=== PATIENT | male | born 1945 | race Caucasian/White ===

== ENCOUNTER 2019-08-04 14:31 | Outpatient (CLI) | payer MEDICARE, BC ==
--- NOTE | 2019-08-04 14:45 | RAD ---
XR Chest Pa Lat STANDARD HISTORY: Hyperlipidemia, dyspnea COMPARISON: None FINDINGS: The heart size is normal. The lungs are well expanded without focal areas of consolidation, pneumothorax or pleural effusions. There are degenerative changes in the spine. IMPRESSION: No radiographic evidence of acute cardiopulmonary process.
== END 2019-08-04 14:32 | disposition home or self-care (01) ==
LOC: BICRAD 14:31
PROVIDERS: ATTEND Family Medicine
DX: E78.5 Hyperlipidemia, unspecified (principal)
CPT/HCPCS: 71046

== ENCOUNTER 2019-09-20 14:46 | Inpatient (IN) | payer MEDICARE, BC ==
[~2019-09-20 14:46] MED LIST: ISOVUE-370 76%-LOCM 1 ML ONE; Iopamidol 370 76% 50 ML VIAL FS ONE
[2019-09-20 15:36] LABS: Hemoglobin 8.5 g/dL (14.0-18.0); Mean Corpuscular HGB CONC 32.6 g/dL (32.0-36.0); Mean Corpuscular Hemoglobin 29.1 pg (27.0-31.0); Mean Corpuscular Volume 89.2 fL (78.0-98.0); Mean Platelet Volume 7.1 fL (7.4-10.4); Platelet Count 509 thou/uL (130-400); RBC Distribution Width 15.9 % (11.5-14.5); Red Blood Cell (RBC) Count 2.93 mill/uL (4.70-6.10); White Blood Cell (WBC) Count 42.2 thou/uL (4.8-10.8)
[2019-09-20 15:39] LABS: INR-International Normal Ratio 1.6; PTT 33.5 SEC (22.9-36.1)
[2019-09-20] MEDS ORDERED: Ketorolac Tromethamine 30 MG/ML VIAL ONE (15:52)
[2019-09-20] MEDS ORDERED: Morphine 4 MG/ML VIAL ONE (15:52)
--- NOTE | 2019-09-20 15:53 | RAD ---
EXAM: CHEST ONE VIEW HISTORY: Dyspnea. 15 pound weight loss. COMPARISON: 08/04/2019 FINDINGS: The cardiac silhouette and pulmonary vasculature is within normal limits. The lungs are clear. The os seous structures are intact. Vascular calcifications are seen in the aortic arch. Chest is overall similar to prior exam. IMPRESSION: No acute cardiopulmonary process.
[2019-09-20 16:01] LABS: Band 8 % (5-11); Eosinophils 1 % (0-10); Hypochromia SLIGHT = 6-15 cells (100X) (0-5/hpf); Lymphocytes 3 % (21-51); MDiff Complete? YES; Monocytes 7 % (0-10); Neutrophil 80 % (42-75); Ovalocytes SLIGHT = 2-5 cells (100X) (0-1/hpf); Platelet Morphology Comment Appears Increased; Polychromasia SLIGHT = 2-3 cells (100X) (0-2/hpf); Reactive Lymphocytes 1 % (0-10); Reflex for Review?? YES; Target Cells SLIGHT = 2-5 cells (100X) (0-1/hpf); Tear Drops SLIGHT = 2-5 cells (100X) (0-1/hpf); Toxic Granulation SLIGHT
[2019-09-20 16:05] LABS: ALT (SGPT) 43 U/L (8-55); AST (SGOT) 58 U/L (5-34); Albumin 2.8 g/dL (3.4-4.8); Alkaline Phosphatase 526 U/L (40-110); Anion Gap 14 mmol/L (10-20); BUN (Urea Nitrogen) 14 mg/dL (8.4-25.7); Calc. Creatinine Clearance 0 mL/min (70-130); Calcium 8.9 mg/dL (7.8-10.44); Carbon Dioxide 29 mmol/L (23-31); Chloride 94 mmol/L (98-107); Estimated GFR-MDRD Greater than 90; Globulin 2.7 g/dL (2.4-3.5); Glucose 150 mg/dL (83-110); Lipase 20 U/L (8-78); Potassium 4.3 mmol/L (3.5-5.1); Protein, Total 5.5 g/dL (5.8-8.1); Sodium 133 mmol/L (136-145)
--- NOTE | 2019-09-20 17:09 | ULT ---
RIGHT UPPER QUADRANT ULTRASOUND CLINICAL HISTORY: Right lower quadrant pain with elevated bilirubin. COMPARISON: CT the abdomen and pelvis dated February 18, 2017 FINDINGS: Liver:There are new hypoechoic masses within the liver suspicious for metastatic disease. One of the largest lesions is seen within the caudate lobe measuring 4.3 x 3.6 x 4.6 cm. An additional enlarged mass is seen within the left hepatic lobe measuring 3.9 x 2.6 x 3.6 cm. There is a small cys t within the left hepatic lobe measuring 1.8 cm. Intrahepatic bile ducts: No intrahepatic or extrahepatic biliary dilation.; Common bile duct: 4.2 mm. Gallbladder: Contracted with a small stone Epstein's sign:None Main portal vein:Patent with hepatopedal flow. Pancreas:Visualized pancreas appears normal. Right kidney: Right kidney measures 11.2 x 5.3 x 6.0 cm.. There is a 1.5 cm cyst involving the anteri or aspect of the right mid kidney. No hydronephrosis is demonstrated. Additional findings: None. IMPRESSION: Interval development of multiple hypoechoic masses within the liver suspicious for metastatic disease . Recommend dedicated CT of the chest, abdomen and pelvis with IV contrast to evaluate for primary site of malignancy additional sites of metastatic involvement. Cholelithiasis without definite sonographic evidence of acute cholecystitis. Right renal cyst
[2019-09-20 19:10] LABS: Bilirubin 1+ (Negative); Blood, Urine Negative (Negative); Clarity Turbid (Clear); Glucose, Urine (Dipstick) Normal (Negative); Leukocyte Negative Leu/uL (Negative); Nitrite Negative (Negative); Protein, Urine (Dipstick) 30 mg/dL (Neg-Trace); Squamous Epithelial 0-3 HPF (0-3); Urobilinogen 12 mg/dL (Less than 2)
[2019-09-20 19:11] LABS: Bacteria/HPF 1+ HPF (None Seen)
[2019-09-20] MEDS ORDERED: Acetaminophen 650 MG Suppository PR PRN (20:17)
[2019-09-20] MEDS ORDERED: Guaifenesin DM 100-10/5 ML UDCUP PO PRN (20:17)
[2019-09-20] MEDS ORDERED: Ondansetron ODT 4 MG TAB PO PRN (20:17)
--- NOTE | 2019-09-20 20:29 | CT ---
CT OF THE CHEST, ABDOMEN, AND PELVIS WITH IV CONTRAST: Indication: New liver lesions concerning for hepatic metastatic disease. Comparison: CT of the abdomen and pelvis, 02-26-17. FINDINGS: CHEST: There are numerous scattered pulmonary nodules within both lungs suspicious for metastatic disease. O ne of the largest is seen in the right lower lobe measuring 4.5 mm on Image 36 of Series 3. There is a 4.6 mm pulmonary nodule in the right middle lobe on Image 29 of Series 3. There is an enlarged pericardial lymph node measuring 9.6 mm on Image 40 of Series 2. ABDOMEN: There are numerous hepatic hypodense masses suspicious for metastatic disease. One of the largest is in Segment 6 of the right hepatic lobe measures 8.1 x 5.6 cm. One of the largest in the left hepatic lobe is seen within the medial left hepatic lobe measuring 6.6 x 4.4 cm. There are numerous enlarged periportal, portocaval and peripancreatic enlargements. There are enlarge d lymph nodes within the gastric splenic ring. There is a larger hyperdense mass involving the pancreatic tail invading the medial spleen as well as the gastrosplenic ligament contacting and effacing the proximal greater curvature of the stomach. Th e mass lesion measures 10.8 x 9.3 x 8.7 cm. There are segmental infarcts involving the inferior pole of the spleen, likely related to tumor invasion. There are enlarged lymph nodes within the transverse mesocolon measuring up to 1.2 and 1.1 cm. There is slight thickening and nodularity seen within the proximal left colonic gutter on image 70 of the axial series suspicious for early carcinomatosis. There is a stable mildly complex cyst involving the right mid-kidney measuring up to 1.[address] is seen involving the inferior pole of the left kidney. No enlarged retroperitoneal lymph nodes are evident. There are vascular calcifications involving the abdominal aorta. PELVIS: There is a fat and sigmoid colon containing left inguinal hernia without evidence of destruction. The re is scattered colonic diverticula. There is a normal appendix in the right lower quadrant of the ab domen. Small bowel has a normal caliber. There is mild anasarca. OSSEOUS STRUCTURES: There is a lucent lesion involving the right ilium which is relatively stable in size and appearance to the comparison CT examination, suspicious for a small hemangioma. There is a new 1.8 cm lytic lesion involving the sacral promontory, Image 98, Series 2, consistent wi th metastatic disease. Similar osteolytic lesion is seen within the right aspect of the T11 vertebral body measuring 9.7 mm, also suspicious for osteolytic metastatic disease. No additional focal osteol ytic lesion is evident. IMPRESSION: 1. Findings consistent with very large hypodense mass involving the pancreatic tail, most suspicious for pancreatic adenocarcinoma. There is localized invasion into the hilum with the spleen inducing se gmental infarcts to the inferior pole of the spleen. There is also invasion of the mass lesion into t he gastric splenic ligament with contact of the proximal greater curvature of the stomach. There is e xtensive metastatic lymphadenopathy within the upper abdomen, particularly in the gastric splenic reg ion, peripancreatic, periportal, portocaval and transverse mesocolon There is also pericardial enlarg ed lymph node noted on the right, suspicious for malignant lymphadenopathy. There are numerous nodule s within the lungs, suspicious for pulmonary metastatic disease. There is nodularity and thickening s een in the proximal left pericolonic gutters suspicious for early carcinomatosis. There are osteolyti c lesion along the sacral promontory and right T11 vertebral body suspicious for metastatic disease. 3. Left inguinal hernia containing unobstructed loop of sigmoid colon. 4. Diverticulosis. 5. Stable mildly complex cystic lesion involving the right mid kidney containing some internal septat ions. Stable left renal cyst. POS: BH
[2019-09-20 20:41] LABS: Reticulocyte Count 4.3 % (0.5-1.5)
[2019-09-20 20:45] VITALS: BMI 27.8
--- NOTE | 2019-09-20 22:05 | HP ---
PRIMARY CARE PHYSICIAN: Mustapha Ricci MD CHIEF COMPLAINT: Severe weakness, and low back and abdominal pain. HISTORY OF PRESENT ILLNESS: This is a 74-year-old white male with a past medical history of low-grade prostate cancer treated with resection, hyperlipidemia and borderline diabetes per the chart, though he denies this, who presents with a 1-2 month history of first lower extremity edema, followed by around the end of August and the New Year, sinusitis symptoms with intermittent fevers. The patient reports that he was feeling fine until the end of July, and beginning in August, he started to have some lower extremity edema. He was still feeling okay at that time, but then started to have a bad sinus infection around [place] time. He reported severe pain and pressure in his frontal and maxillary sinuses along with some intermittent fevers. He was treated with a steroid shot at Urgent Care along with an antibiotic course. His symptoms got immediately better with a steroid shot; however, they started to come back even on the antibiotics. He went to follow up with his primary care doctor, who put him on Levaquin. At that time, the patient started to become very weak. He was having some pain in his right upper quadrant of his abdomen and mid epigastric region. He had no appetite and was not eating much at all. On the Levaquin, he had resolution of his sinusitis pressure and pain. However, he had worsening of his other symptoms. He had no appetite, was barely able to eat anything, started having sense of significant bilateral low and mid back pain and an aching all the way down his legs and then some intermittent pains in his right upper quadrant. The patient went back in to see his primary care doctor today and was told to go to the emergency room. In the ER, he was found to have a significant leukocytosis 40,000 with no current fever. He also had a drop in his hemoglobin from normal 3 months ago; it is now down to 8.5 with a normal MCV. Platelet count was very elevated at 500. His leukocytosis was all neutrophils, but only 8% bands. The smear pathology is pending. He did have elevated liver function tests as well with a bilirubin of 4, which was negative in August, and albumin down to 2.8, which had been normal in August. Troponin and brain natriuretic peptides were negative and his chest x-ray was clear for any evidence of congestive failure. His urinalysis was also checked and showed minimal RBCs and white blood cells, but 30 protein. No evidence of significant infection there. The patient had an ultrasound of his abdomen and his liver done in the emergency room that showed new hypoechoic masses in the liver suspicious for metastatic disease, but no evidence of biliary disease. His right kidney did have a small cyst as well. He did have some cholelithiasis, but no evidence of acute cholecystitis or biliary obstruction. The patient is being admitted to the hospital for workup of likely cancer, leukemia is a definite concern. PAST MEDICAL HISTORY: 1. Hyperlipidemia, on a statin and fish oil. 2. Prostate cancer with resection 2 years ago. He had some residual cells that are just being observed. 3. Sleep apnea. 4. Diverticulosis. 5. Mild reaction to blood transfusion. 6. Renal cysts. PAST SURGICAL HISTORY: 1. Vasectomy. 2. Inguinal hernia repair bilaterally. 3. Prostatectomy. 4. Colonoscopy with polypectomy and a bleed following it back in 2013. SOCIAL HISTORY: The patient is , lives alone. He is accompanied by his daughter to the emergency room. He is a full code. His daughter would be his medical decision maker. Her name is Mounika Pedroza and his other daughter, who is on her way, Beronica Lang. FAMILY HISTORY: Mother at 81 of some sort of acute leukemia. Father of aortic stenosis at 85. Brother has stage IV colon cancer and all other brothers have hyperlipidemia and hypertriglyceridemia. ALLERGIES: NO KNOWN DRUG ALLERGIES. CURRENT MEDICATIONS: 1. Pravastatin 40 mg daily. 2. Colace 100 mg twice a day. 3. [place]-3 fatty acids one tablet 1000 mg daily. 4. Aspirin 81 mg daily. REVIEW OF SYSTEMS: CONSTITUTIONAL: See HPI. He has had intermittent fevers ever since August, even with resolution of his sinus symptoms, highest temperature was either 102 or 103. These resolved spontaneously. He has also had some weight loss that he could not say how much. EYES: No double vision or blurred vision. ENT: He has a little runny nose, but not bad. No sore throat. CARDIOVASCULAR: No chest pain. No palpitations or racing heart. PULMONARY: Intermittent cough. He does have some dry coughing fits occasionally, but nothing persistent. No shortness of breath. GASTROINTESTINAL: See HPI. No nausea or vomiting. No diarrhea or constipation. No blood in his stools. GENITOURINARY: No dysuria or hematuria. MUSCULOSKELETAL: See HPI. His back pain has now resolved after a dose of morphine and Toradol in the emergency room. SKIN: No rashes or other lesions noted. NEUROLOGIC: He has not noticed any focal numbness, tingling, or weakness, but he has had generalized weakness, just feels very very fatigued, has a hard time getting up from his chair to the other side of his living room and he stated he needed help to get to the emergency room today from his daughter. PSYCHIATRIC: No hallucinations. No mood changes. PHYSICAL EXAMINATION: VITAL SIGNS: Blood pressure 118/57, pulse 95, respirations 19, O2 saturation 98% on room air, temperature 98.4. GENERAL: This is a well-developed, obese white male, in no acute distress. HEENT: Pupils are equal, round, and reactive to light. Oropharynx clear without lesions, erythema, or exudate. NECK: Supple. No lymphadenopathy. No thyroid nodules or enlargement. No JVD. HEART: Regular rate and rhythm. No murmurs, rubs, or gallops. LUNGS: Clear to auscultation bilaterally. No wheezes, crackles, or rhonchi. ABDOMEN: Soft. Significant tenderness to palpation in the right upper quadrant. He does have some fullness in the right upper quadrant as well. No tenderness in the rest of his abdomen, no other masses palpable. EXTREMITIES: He has 2+ edema to bilateral lower extremities. BACK: The patient has no tenderness to palpation or percussion of his CVA or other areas of his back currently after medications were given. SKIN: The patient has very mild jaundice. No other rashes or lesions noted. NEUROLOGIC: The patient has intact strength and sensation in all extremities. No facial droop. PSYCHIATRIC: Alert and oriented x3. Normal mood and affect. LABORATORY DATA: CBC with a white blood cell count of 42,000, this is up from 10,000 in June 2019, which was our last time we checked this, 80% neutrophils and 8% bands, hemoglobin of 8.5, MCV 89, RDW is elevated at 15, platelet count 509. Coagulation profile shows an INR of 1.6, PT of 19. Complete metabolic panel is notable for sodium of 133, chloride of 94, glucose of 105, total bilirubin of 4.0, AST of 58, alkaline phosphatase of 526, and albumin of 2.8. Lipase was negative. Brain natriuretic peptide was normal. Troponin was negative. Urinalysis showed 4-6 RBCs, 4-6 white blood cells, 1+ bacteria, no leukocyte esterase, no nitrites, 30 protein. IMAGING STUDIES: Ultrasound of the abdomen shows interval development of multiple hypoechoic masses with the liver suspicious for metastatic disease. There were some cholelithiasis without definitive sonographic evidence of acute cholecystitis. Chest x-ray, I did review the chest x-ray in the emergency room along with the radiologist's report. There is no evidence of acute cardiopulmonary process. No pulmonary edema. No infiltrates. ASSESSMENT: 1. Severe leukocytosis. This is concerning for the possibility of infection. However, he is not febrile right now and he actually does not look acutely infected. The other possibility would be an acute metastatic disease like leukemia. This is more likely given his recent history and his family history. We will go ahead and check blood cultures and monitor the patient closely for any evidence of infection. We will get a peripheral smear to see if these look malignant. The patient has recently been treated with Levaquin outpatient without any changes in his symptoms besides improvement in his sinus issues, so we will hold off on broad-spectrum antibiotics for now. I will go ahead and check a lactic acid though and see if there is any evidence of him being septic. Currently, he is not tachycardic and not febrile and is not having any respiratory difficulties and his urine looks relatively clean, so we will hold off on broad-spectrum antibiotics for now. 2. Acute hepatitis with elevated bilirubin and very low albumin and significant tenderness to palpation in his right upper quadrant. There may be some confounding factors, but he does seem to have some issues with his liver likely from metastatic lesions. We will check the differential and bilirubin. I am entertaining the possibility of this bilirubin elevation being due to such a significant change since last month that this is actually due to hemolysis given that his ultrasound was normal of his biliary tree. The low albumin corresponds well with the elevated PT/INR for liver source due to poor production ability by the liver; however, something like a nephrotic syndrome is a distinct possibility as well. 3. Acute anemia with his normal blood count last month. This is the concern for blood loss. He does not have significant amount of blood in his urine and with the Hemoccult stools, he is at risk for losing blood there given his increased elevated INR. I will check a haptoglobin and LDH, for this problem, as well as for the leukocytosis, we will have Hematology/Oncology consult. 4. Bilateral lower extremity edema, likely due to his low albumin. We will go ahead and get a bilateral ultrasound to make sure he does not have DVTs. If he is losing protein through his kidneys, then he is at risk for actually hypercoagulable state initially. 5. Hyperlipidemia. 6. Previous prostate cancer, some sort of metastatic disease from his prostate remains possibly though with the speed of onset of this size and I doubt this is due to his prostate. 7. Gastrointestinal prophylaxis. The patient is on Pepcid twice a day. 8. Deep venous thrombosis prophylaxis. I have to hold off on any Lovenox for now and on SCDs due to his significant edema until we have ruled out any DVTs. CODE STATUS: I did discuss with the patient he is a full code. Should he be incapacitated, his daughters would be his medical decision makers. Job ID: [id number]
[2019-09-20] MEDS: Famotidine/PF 20 mg/2ml Vial SLOW IVP SCH (22:40)
[2019-09-20 23:38] LABS: Lactic Acid 2.3 mmol/L (0.5-2.2)
[2019-09-21] MEDS: traMADol HCl 50 MG TAB PO PRN (02:58)
[2019-09-21 04:28] LABS: Anion Gap 13 mmol/L (10-20); BUN (Urea Nitrogen) 15 mg/dL (8.4-25.7); Calc. Creatinine Clearance 119 mL/min (70-130); Calcium 8.7 mg/dL (7.8-10.44); Carbon Dioxide 27 mmol/L (23-31); Chloride 95 mmol/L (98-107); Estimated GFR-MDRD Greater than 90; Glucose 109 mg/dL (83-110); Potassium 4.1 mmol/L (3.5-5.1); Sodium 131 mmol/L (136-145)
[2019-09-21] MEDS: Morphine 4 MG/ML VIAL SLOW IVP PRN ×2 (04:56→16:29)
[2019-09-21 05:26] LABS: Band 9 % (5-11); Eosinophils 1 % (0-10); Hemoglobin 7.7 g/dL (14.0-18.0); Lymphocytes 5 % (21-51); MDiff Complete? YES; Mean Corpuscular HGB CONC 31.5 g/dL (32.0-36.0); Mean Corpuscular Hemoglobin 27.7 pg (27.0-31.0); Mean Corpuscular Volume 87.7 fL (78.0-98.0); Mean Platelet Volume 7.3 fL (7.4-10.4); Monocytes 7 % (0-10); Neutrophil 78 % (42-75); Platelet Count 451 thou/uL (130-400); RBC Distribution Width 15.8 % (11.5-14.5); Red Blood Cell (RBC) Count 2.78 mill/uL (4.70-6.10); White Blood Cell (WBC) Count 38.1 thou/uL (4.8-10.8)
--- NOTE | 2019-09-21 07:56 | PDOC.HOSPP ---
- Subjective Encounter Date: 09/21/19 Encounter Time: 10:00 Subjective: Patient without events overnight. No high fevers. Still feeling very fatigued. Pain controlled. - Objective Vital Signs & Weight: Vital Signs (12 hours) Temp Pulse Resp BP BP Pulse Ox 09/21/19 04:00 99.7 F H 113 H 16 112/62 94 L 09/20/19 23:55 99.3 F 97 16 115/56 L 95 09/20/19 20:17 98 09/20/19 19:58 98.7 F 101 H 18 127/61 98 Weight Weight 194 lb Result Diagrams: 09/21/19 03:31 09/21/19 03:31 Hospitalist ROS - Review of Systems Constitutional: denies: fever, chills Respiratory: denies: cough, shortness of breath Cardiovascular: denies: chest pain, palpitations, orthopnea Gastrointestinal: reports: abdominal pain. denies: nausea, vomiting, diarrhea, constipation Musculoskeletal: reports: back pain - Medication Medications: Active Medications Generic Name Dose Route Start Last Admin Trade Name Freq PRN Reason Stop Dose Admin Famotidine 20 mg 09/20/19 21:00 09/20/19 22:40 Pepcid SLOW IVP 20 mg Q12HR SARAH Administration Morphine Sulfate 4 mg 09/20/19 20:17 09/21/19 04:56 Morphine SLOW IVP 4 mg Q4H PRN Administration Severe Pain (7-10) Tramadol HCl 50 mg 09/20/19 20:17 09/21/19 02:58 Ultram PO 50 mg Q6H PRN Administration Mild Pain (1-3) - Exam General Appearance: NAD, awake alert ENT: moist mucosa Heart: RRR, no murmur, no gallops, no rubs Respiratory: CTAB, no wheezes, no rales, no ronchi Gastrointestinal: soft, normal bowel sounds, no rigidity Gastrointestinal - other findings: TTP RUQ though without the severe guarding from yesterday Extremities: 2+ LE edema Psychiatric: normal affect, normal behavior, A&O x 3 Hosp A/P (1) Pancreatic mass Status: Acute (2) Metastatic disease Code(s): C79.9 - SECONDARY MALIGNANT NEOPLASM OF UNSPECIFIED SITE Status: Acute (3) Leukocytosis Code(s): D72.829 - ELEVATED WHITE BLOOD CELL COUNT, UNSPECIFIED Status: Acute (4) Anemia Code(s): D64.9 - ANEMIA, UNSPECIFIED Status: Acute (5) Jaundice Code(s): R17 - UNSPECIFIED JAUNDICE Status: Acute (6) Hepatic failure Status: Acute - Plan Consults: Palliative Care CT scan of chest, abd, pelvis consistent with metastatic pancreatic cancer. Heme /Onc and GI consulted this AM. Leukocytosis, intermittent tachycardia consistent with SIRS. No focus of infection identified. Possibly due to neoplastic disease, but given significant RUQ TTP I started on broad spectrum antibiotics after blood cultures drawn. Will have surgery evaluate as well. Anemia worsened after oral fluids in the ER. No evidence of bleeding at this time. Heme/Onc consulted. Transfuse as needed. Poor prognosis. Will have Palliative Care consult as well.
[2019-09-21 08:05] LABS: Iron 18 ug/dL (65-175); Iron Binding Capacity, Total 113 mcg/dL (261-462)
[2019-09-21] MEDS: Famotidine/PF 20 mg/2ml Vial SLOW IVP SCH ×2 (08:27→20:18)
[2019-09-21] MEDS: Senokot S 8.6-50 MG TAB PO PRN ×2 (08:51→21:36)
[2019-09-21] MEDS: Cefepime 2 GM in Sodium Chloride 0.9% 100 ML IVPB SCH ×2 (08:52→20:22)
--- NOTE | 2019-09-21 12:43 | PDOC.PALFU ---
Palliative Care Follow-up Note Steffanie Dunn RNribbon lap machine tender initially saw Mr Farah today for initial palliative care consult. Family at bedside and initial information provided. Please see her notes under the note section of the chart. Mid Level to follow up with conversation in relation to Goals of Care and provide additional support 09/22 or 09/23/2019.
[2019-09-21] MEDS ORDERED: Phytonadione 10 MG/ML AMP PO SCH (13:45)
--- NOTE | 2019-09-21 14:33 | CON ---
DATE OF CONSULTATION: 09/21/2019 REASON FOR CONSULTATION: Metastatic cancer, concern for cholangitis. HISTORY OF PRESENT ILLNESS: Mr. Farah is a 74-year-old male, who has had a 15-pound weight loss associated with poor appetite and feeling bad over the last several months, presented to the ER for further evaluation yesterday and was admitted with evidence of metastatic disease. CT obtained showed a 10 cm pancreatic mass in addition to numerous adenopathy, evidence of early carcinomatosis, metastatic pulmonary nodules, and evidence of multiple lesions in liver with two large lesions and smaller lesions. The patient does complain of having some vague upper abdominal pain, but not severe. He is without any nausea or vomiting. No diarrhea. The patient reports having some low-grade fever at home on and off, but without any shaking chills or rigors. He has noted some darkening of his urine, but denies any jaundice. Those around him have complained that he looks pale. He denies having any pruritus. PAST MEDICAL HISTORY: 1. History of prostate cancer. 2. Hyperlipidemia. 3. Obstructive sleep apnea. 4. History of hysterectomy. 5. History of inguinal hernia repair. SOCIAL HISTORY: The patient lives by himself. Daughter in room. He has no tobacco or alcohol usage. FAMILY HISTORY: Negative for any known GI problem, liver disease, and GI malignancy. REVIEW OF SYSTEMS: Ten-point review of systems did not show any other pertinent positives or negatives or any other symptoms not listed above. PHYSICAL EXAMINATION: VITAL SIGNS: Temperature is 98.6, blood pressure 121/57, and pulse of 99. GENERAL: He is alert, pale, but in no distress. HEENT: Shows mildly icteric sclerae. Oropharynx is clear. NECK: Supple. CV: Shows normal S1 and S2. Regular rate and rhythm. CHEST: Shows a breath sounds. ABDOMEN: Mildly protuberant, but no tympany. He has active bowel sounds. There is vague tenderness in the medial right upper quadrant and along the right upper quadrant. There is no palpable mass, although there is hint of hepatomegaly. He has active bowel sounds. There is no guarding or rebound. EXTREMITIES: Shows mild pitting pretibial edema. No cyanosis. LABORATORY DATA: WBCs 38.1, hemoglobin 7.7 down from 8.5 yesterday, platelet count of 451, and MCV of 87.7. Electrolytes within normal range. Lactic acid 2.3, bilirubin 4.0, AST 58, ALT 43, alkaline phosphatase 526, and albumin 2.8. Abdominal ultrasound showed multiple hypoechoic liver masses, cholelithiasis, renal cyst, and CBD measure 4.2 mm. ASSESSMENT: 1. Evidence of widely metastatic pancreatic cancer with the largest predominant mass located in the pancreas. 2. Leukocytosis and thrombocytosis are likely reactive. No evidence of cholangitis or sepsis at the present time. 3. Anemia, no evidence of gastrointestinal bleed thus far. 4. Mild elevation of bilirubin, likely from intrahepatic small bile duct cholestasis from metastatic disease. There is no evidence of common bile duct obstruction or significant intrahepatic large biliary obstruction as there is no dilation of the duct and CBD only measures 4 mm on ultrasound. RECOMMENDATION: 1. We will obtain a set of blood cultures. 2. If negative, the patient may not need any antimicrobial therapy. 3. No other GI procedure or test at the present time, other than his CA-19-9 level. 4. We will follow. Job ID: [id number]
[2019-09-21] MEDS: metroNIDAZOLE 500 MG in Premix Bag 1 BAG IVPB SCH ×2 (14:36→21:38)
--- NOTE | 2019-09-21 16:30 | CON ---
DATE OF CONSULTATION: 09/21/2019 REQUESTING PHYSICIAN: Reyes Mena MD HISTORY OF PRESENT ILLNESS: This is a 74-year-old man, who was admitted yesterday with worsening fatigue. The patient reports general malaise with symptoms of sinusitis, which started the week of 2018. He was treated for acute sinusitis with tender course of antibiotics with minimum relief. His treatment was extended for additional 10 days. In the interim, although he received a transient improvement with his sinusitis, he has developed worsening fatigue, early satiety, anorexia, and right upper quadrant abdominal pain. The patient was referred to the Emergency Department, where workup was initiated. I have been asked to evaluate the patient with regard to the right upper quadrant abdominal pain. On my evaluation, the patient provides additional history of 15 to 20 pounds weight loss over the last 1 year. He denies any fever, night sweats, or chest pain. He denies any dyspnea. He complains of worsening back pain, especially in the mid scapular area at midline. He denies any radiculopathies. PAST MEDICAL HISTORY: Pertinent for diverticulosis coli, prostatic carcinoma, obstructive sleep apnea, hyperlipidemia, and renal cysts. PAST SURGICAL HISTORY: Pertinent for bilateral inguinal herniorrhaphies, radical prostatectomy two years ago, colonoscopy with polypectomy in 2013, as well as vasectomy. SOCIAL HISTORY: The patient is and lives independently. He denies any cigarette smoking, ethanol, or illicit drug abuse. FAMILY HISTORY: Noncontributory for this patient's age. PREHOSPITAL MEDICATIONS: Includes; 1. Pravastatin 40 mg p.o. daily. 2. Clarington-3 fatty acid 1000 mg p.o. daily. 3. Aspirin 81 mg p.o. daily. 4. Colace 100 mg p.o. b.i.d. ALLERGIES: TO PENICILLIN. REVIEW OF SYSTEMS: Ten-point review of systems essentially unremarkable except as stated in past medical history and chief complaint. PHYSICAL EXAMINATION: GENERAL: This reveals a 74-year-old normally developed man, who is otherwise coherent, interactive, and appears stated age. The patient is alert and oriented x3, appears to be in no acute distress at time of my evaluation. VITAL SIGNS: Today includes blood pressure 121/57, pulse is 99, respiratory rate is 13, temperature 98.6 degrees Fahrenheit, and oxygen saturation is 98% on room air. HEENT: Reveals normocephalic and atraumatic. The pupils are equal, round, and reactive to light and accommodation. Extraocular muscles are intact bilaterally. No scleral icterus is present. Oral mucosa is pink and moist. No lesions are present. NECK: Supple. No palpable lymphadenopathy or thyromegaly present. HEART: Reveals regular rate and rhythm. No murmurs or gallops auscultated. LUNGS: Clear to auscultation bilaterally. His breathing is regular and unlabored. ABDOMEN: Soft and obese with right upper quadrant tenderness to palpation. Liver and spleen nonpalpable below costal margin. He has no peritoneal signs on examination. NEUROLOGIC: Reveals no focal deficits present. LABORATORY FINDINGS: Today includes a CBC with 38,100 white blood cells, hemoglobin and hematocrit 7.7 and 24.4 respectively. Platelet count is 451,000. White blood cell count yesterday was 42,200. Differential counts today as follows; 78 segmented neutrophils, 9 bands, 5 lymphocytes, 7 monocytes, and 1 eosinophil. Metabolic profile from yesterday include sodium 133, potassium 4.3, chloride is 94, BUN 14, creatinine 0.70, glucose 150, calcium 8.9, total bilirubin 4.0 with direct bilirubin 2.8, AST and ALT noted at 58 and 43 respectively. Alkaline phosphatase is elevated at 526. I have reviewed all radiographic studies in this admission including abdominal ultrasound, which is notable for multiple hyperechoic lesions within the liver. A contracted gallbladder is also noted with small intraluminal gallstone. Common bile duct is normal for this patient's age at 4.[address] scan of the chest, abdomen, and pelvis remarkable for multiple pulmonary nodules, multiple intrahepatic parenchymal lesions suspicious for metastatic disease. Also, or significant note is large mass in the tail of the pancreas infiltrating adjacent structures. There are multiple intraabdominal lymphadenopathy. Bony metastasis is also suspected at T11 and sacrum. IMPRESSION: 1. Large pancreatic mass with multiple abnormal lesions in the lungs and liver suspicious for metastatic pancreatic adenocarcinoma. 2. T11 and sacral spinal lesions suspicious for metastatic disease. 3. Contracted gallbladder with cholelithiasis. I doubt this is the etiology of this patient's right upper quadrant abdominal pain, which is more likely from the multiple hepatic metastatic disease. RECOMMENDATION: 1. There is no acute surgical indication for this patient at this time. 2. We will obtain tumor markers pending evaluation by Oncology. Above findings and plan discussed with the patient and his adult daughter at bedside. 3. They both indicated understanding information given. I have answered their questions. Job ID: [id number]
[2019-09-21] MEDS: Acetaminophen 325 MG TAB PO PRN (20:16)
--- NOTE | 2019-09-21 21:13 | CON ---
DATE OF CONSULTATION: REASON FOR CONSULTATION: Metastatic disease. HISTORY OF PRESENT ILLNESS: Mr. Farah is a pleasant 74-year-old gentleman, who presented to the emergency room with weakness, poor appetite, and 15-pound weight loss over the past several months. He also had right upper quadrant abdominal pain. He underwent a CT of the chest, abdomen, and pelvis, which showed numerous scattered pulmonary nodules less than a cm suspicious for metastatic disease. He had numerous liver lesions; the largest was in the right hepatic lobe measuring 8.1 x 5.6 cm; the largest in the left lobe measured 6.6 x 4.4 cm. He had may portacaval and may pancreatic lymphadenopathy. There was a large mass in the pancreatic tail measuring 10.8 x 9.3 x 8.7. He had a 1.8 cm lytic lesion of the sacrum, T4 vertebral body. The patient had elevated bilirubin on admission of 4. He had leukocytosis with a white count of 42.4. He was anemic and had thrombocytosis. He also had blood in his urine. He does have a history of prostate cancer with resection 2 years ago. He was seen at bedside with his daughter. His pain is controlled with narcotic medication. He has a remote history of alcohol use, but quit 7 months ago. PAST MEDICAL HISTORY: 1. Prostate cancer, status post prostatectomy. 2. Hyperlipidemia. 3. Obstructive sleep apnea. 4. Hernia repair. PAST SURGICAL HISTORY: Vasectomy, prostatectomy, colonoscopy with polypectomy. ALLERGIES: NO KNOWN DRUG ALLERGIES. HOME MEDICATIONS: 1. Aspirin. 2. Colace. 3. Flonase. 4. Pravachol. 5. Fish oil. 6. Ambien. FAMILY HISTORY: Mother had acute leukemia at elderly age. Father from aortic stenosis. Had a brother with stage IV colon cancer later in life. SOCIAL HISTORY: , lives alone. Has 2 daughters. Remote history of alcohol use. No tobacco or illicit drug use. REVIEW OF SYSTEMS: Positive for right upper quadrant pain, weakness, and constipation. PHYSICAL EXAMINATION: VITAL SIGNS: Temperature is 97.4, pulse is 104, respiratory rate 16, BP is 133/76. He is 98% on room air. GENERAL: This is a well-developed, well-nourished male, in no acute distress. HEENT: Normocephalic, atraumatic. Pupils are equal and reactive to light. NECK: Supple. CV: Regular rate and rhythm. LUNGS: Clear,. ABDOMEN: Distended, tender to palpation on both the right and left upper quadrant. EXTREMITIES: No clubbing or cyanosis. SKIN: No rash. HEMATOLOGICAL: No petechiae or purpura. NEUROLOGIC: Nonfocal. PSYCHIATRIC: He is oriented. PERTINENT LABORATORY DATA AND X-RAYS: White count is 38.1, hemoglobin 7.7, hematocrit 24.4, platelet count is 451,000, 78% neutrophils, 9% bands, 5% lymphocytes, retic count is 4.3. PT is 19, INR is 1.6, PTT is 33.5. Sodium is 131, potassium 4.1, chloride 95, CO2 is 26, BUN is 15, creatinine is 0.7, glucose is 109. Lactic acid 2.3, calcium 8.7. Iron is 18, TIBC is 113, ferritin is 3461. CEA is 167.64. Bilirubin is 4. AST is 58, ALT is 43, alkaline phosphatase is 526. Serum total protein is 5.5, albumin 2.8, globulin 2.7. Radiology per HPI. ASSESSMENT: 1. Likely stage IV pancreatic cancer with metastasis to the liver, lymph nodes, and bone. 2. History of prostate cancer, status post prostatectomy. 3. Hyperbilirubinemia, likely due to liver metastatic disease. 4. Leukocytosis and thrombocytosis, likely reactive. 5. Anemia secondary to cancer. DISCUSSION: The patient needs tissue biopsy to confirm diagnosis. Plan for CT-guided biopsy of one of the liver masses tomorrow. His pain is currently controlled. His CEA is elevated at 167.64. CA-19-9 is pending. Discussed plan with patient and daughter, who wished to proceed with biopsy. Thank you for the consult. We will follow up with treatment recommendations once we have tissue diagnosis. Job ID: [id number]
[2019-09-21] MEDS: Ondansetron PF 4 MG/2 ML Vial IVP PRN (21:23)
[2019-09-22] MEDS: Acetaminophen 325 MG TAB PO PRN ×2 (02:53→20:05)
[2019-09-22] MEDS: Morphine 4 MG/ML VIAL SLOW IVP PRN ×3 (03:06→19:02)
[2019-09-22 04:50] LABS: INR-International Normal Ratio 1.7; Prothrombin Time 20.1 SEC (12.0-14.7)
[2019-09-22 04:51] LABS: PTT 34.5 SEC (22.9-36.1)
[2019-09-22 05:03] LABS: ALT (SGPT) 36 U/L (8-55); AST (SGOT) 67 U/L (5-34); Albumin 2.1 g/dL (3.4-4.8); Alkaline Phosphatase 491 U/L (40-110); Anion Gap 13 mmol/L (10-20); BUN (Urea Nitrogen) 13 mg/dL (8.4-25.7); Bilirubin, Total 4.8 mg/dL (0.2-1.2); Calc. Creatinine Clearance 134 mL/min (70-130); Calcium 8.1 mg/dL (7.8-10.44); Carbon Dioxide 25 mmol/L (23-31); Chloride 95 mmol/L (98-107); Estimated GFR-MDRD Greater than 90; Globulin 2.7 g/dL (2.4-3.5); Glucose 104 mg/dL (83-110); Potassium 4.6 mmol/L (3.5-5.1); Protein, Total 4.8 g/dL (5.8-8.1); Sodium 128 mmol/L (136-145)
[2019-09-22] MEDS: metroNIDAZOLE 500 MG in Premix Bag 1 BAG IVPB SCH ×3 (05:46→21:28)
[2019-09-22 05:54] LABS: Band 7 % (5-11); Hemoglobin 7.2 g/dL (14.0-18.0); Hypochromia SLIGHT = 6-15 cells (100X) (0-5/hpf); Lymphocytes 8 % (21-51); MDiff Complete? YES; Mean Corpuscular HGB CONC 31.5 g/dL (32.0-36.0); Mean Corpuscular Hemoglobin 27.8 pg (27.0-31.0); Mean Corpuscular Volume 88.1 fL (78.0-98.0); Mean Platelet Volume 7.3 fL (7.4-10.4); Metamyelocyte 1 % (0-0); Monocytes 5 % (0-10); Neutrophil 79 % (42-75); Nucleated RBC 1 % (0); Platelet Count 338 thou/uL (130-400); Platelet Morphology Comment Appears Adequate; Polychromasia SLIGHT = 2-3 cells (100X) (0-2/hpf); Red Blood Cell (RBC) Count 2.61 mill/uL (4.70-6.10); Toxic Granulation SLIGHT; White Blood Cell (WBC) Count 38.3 thou/uL (4.8-10.8)
[2019-09-22] MEDS ORDERED: Phytonadione 10 MG/ML AMP PO SCH (08:30)
--- NOTE | 2019-09-22 08:48 | PDOC.HOSPP ---
- Subjective Encounter Date: 09/22/19 Encounter Time: 13:00 Subjective: No changes overnight. Some continued fever spikes. Fatigue. Pain well controlled. Couldn't get the liver biopsy due to INR this AM. - Objective Vital Signs & Weight: Vital Signs (12 hours) Temp Pulse Resp BP BP Pulse Ox 09/22/19 08:00 98.5 F 88 18 131/62 93 L 09/22/19 04:00 99.0 F 99 16 102/54 L 94 L 09/22/19 03:49 100.1 F H 09/22/19 03:30 100.1 F H 09/22/19 00:00 101.2 F H 110 H 16 116/59 L 93 L Weight Admit Weight 194 lb Weight 194 lb I&O: 09/21/19 09/22/19 09/23/19 06:59 06:59 06:59 Intake Total 320 Output Total 450 150 Balance -450 170 Result Diagrams: 09/22/19 05:12 09/22/19 04:29 Hospitalist ROS - Review of Systems Constitutional: reports: fever, chills, weakness, malaise Respiratory: denies: cough, shortness of breath Cardiovascular: denies: chest pain, palpitations, orthopnea Gastrointestinal: reports: abdominal pain. denies: nausea, vomiting, diarrhea, constipation Musculoskeletal: reports: back pain - Medication Medications: Active Medications Generic Name Dose Route Start Last Admin Trade Name Freq PRN Reason Stop Dose Admin Acetaminophen 650 mg 09/20/19 20:17 09/22/19 02:53 Tylenol PO 650 mg Q4H PRN Administration Headache/Fever/Mild Pain (1-3) Famotidine 20 mg 09/20/19 21:00 09/21/19 20:18 Pepcid SLOW IVP 20 mg Q12HR SARAH Administration Cefepime HCl 2 gm/ Sodium 100 mls @ 200 mls/hr 09/21/19 09:00 09/21/19 20:22 Chloride IVPB 100 mls Q12HR SARAH Administration Metronidazole 500 mg/ Device 100 mls @ 100 mls/hr 09/21/19 14:00 09/22/19 05: 46 IVPB 100 mls Q8HR SARAH Administration Morphine Sulfate 4 mg 09/20/19 20:17 09/22/19 03:06 Morphine SLOW IVP 4 mg Q4H PRN Administration Severe Pain (7-10) Ondansetron HCl 4 mg 09/20/19 20:17 09/21/19 21:23 Zofran IVP 4 mg Q6H PRN Administration Nausea/Vomiting Senna/Docusate Sodium 2 tab 09/20/19 20:17 09/21/19 21:36 Senokot S PO 2 tab BID PRN Administration Constipation Sodium Chloride 10 ml 09/21/19 09:00 09/21/19 20:30 Flush - Normal Saline IVF 10 ml Q12HR SARAH Administration Sodium Chloride 10 ml 09/21/19 08:09 09/22/19 05:47 Flush - Normal Saline IVF 10 ml PRN PRN Administration Saline Flush Tramadol HCl 50 mg 09/20/19 20:17 09/21/19 02:58 Ultram PO 50 mg Q6H PRN Administration Mild Pain (1-3) - Exam General Appearance: NAD, awake alert Eye: scleral icterus ENT: moist mucosa Heart: RRR, no murmur, no gallops, no rubs Respiratory: CTAB, no wheezes, no rales, no ronchi Gastrointestinal: soft, non-distended, normal bowel sounds, tender to palpation Gastrointestinal - other findings: guarding in RUQ Psychiatric: normal affect, normal behavior, A&O x 3 Hosp A/P (1) Pancreatic mass Status: Acute (2) Metastatic disease Code(s): C79.9 - SECONDARY MALIGNANT NEOPLASM OF UNSPECIFIED SITE Status: Acute (3) Leukocytosis Code(s): D72.829 - ELEVATED WHITE BLOOD CELL COUNT, UNSPECIFIED Status: Acute (4) Anemia Code(s): D64.9 - ANEMIA, UNSPECIFIED Status: Acute Qualifiers: Anemia type: other cause (5) Jaundice Code(s): R17 - UNSPECIFIED JAUNDICE Status: Acute (6) Hepatic failure Status: Acute - Plan CT scan of chest, abd, pelvis consistent with metastatic pancreatic cancer. Heme /Onc and GI consulted, plan for liver biopsy, attempt again tomorrow after Vitamin K Leukocytosis, intermittent tachycardia consistent with SIRS. General agreement of consultants is that this is paraneoplastic, not infectious. Will continue antibiotics for now, but likely stop if blood cultures come back negative tomorrow morning Anemia worsened after oral fluids in the ER. No evidence of bleeding at this time. Heme/Onc consulted. Transfuse as needed. Poor prognosis. Palliative care following.
--- NOTE | 2019-09-22 09:41 | PDOC.MOPN ---
Interval History: c/o hiccups, poor appetite, weakness - Vital Signs Vital Signs: Vital Signs (12 hours) Temp Pulse Resp BP BP Pulse Ox 09/22/19 08:00 98.5 F 88 18 131/62 93 L 09/22/19 04:00 99.0 F 99 16 102/54 L 94 L 09/22/19 03:49 100.1 F H 09/22/19 03:30 100.1 F H 09/22/19 00:00 101.2 F H 110 H 16 116/59 L 93 L Weight Admit Weight 194 lb Weight 194 lb - Physical Exam General: Alert, Oriented x3, No acute distress HEENT: Atraumatic, PERRLA, EOMI, Mucous membr. moist/pink Lungs: Clear to auscultation, Normal air movement Cardiovascular: Regular rate, Normal S1, Normal S2, No murmurs, Gallops, Rubs Abdomen: Other (tenderness, distented) Extremities: No clubbing, No cyanosis, No edema, Normal pulses, No tenderness/ swelling Skin: No rashes, No breakdown, No significant lesion Neurological: Normal gait, Normal speech, Strength at 5/5 X4 ext, Normal tone, Sensation intact, Cranial nerves 3-12 NL, Reflexes 2+ Psych/Mental Status: Mental status NL, Mood NL - Labs Result Diagrams: 09/22/19 05:12 09/22/19 04:29 Lab results: Laboratory Results - last 24 hr 09/22/19 05:12: WBC 38.3 H, RBC 2.61 L, Hgb 7.2 L, Hct 23.0 L, MCV 88.1, MCH 27.8, MCHC 31.5 L, RDW 16.0 H, Plt Count 338, MPV 7.3 L, Neutrophils % (Manual) 79 H, Band Neuts % (Manual) 7, Lymphocytes % (Manual) 8 L, Monocytes % (Manual) 5, Metamyelocytes % (Man) 1 H, Nucleated RBCs # (Man) 1 H, Hypochromia SLIGHT = 6-15 cells, Toxic Granulation SLIGHT, Plt Morphology Comment Appears Adequate, Polychromasia SLIGHT = 2-3 cells 09/22/19 04:29: PT 20.1 H, INR 1.7, APTT 34.5 09/22/19 04:29: Sodium 128 L, Potassium 4.6, Chloride 95 L, Carbon Dioxide 25, Anion Gap 13, BUN 13, Creatinine 0.62 L, Estimated GFR (MDRD) Greater than 90, Glucose 104, Calcium 8.1, Total Bilirubin 4.8 H, AST 67 H, ALT 36, Alkaline Phosphatase 491 H, Serum Total Protein 4.8 L, Albumin 2.1 L, Globulin 2.7, Albumin/Globulin Ratio 0.8 L 09/21/19 10:31: Tumor Marker AFP Less than 2.0 09/21/19 10:31: CA 19-9 Antigen 34120 H 09/21/19 07:30: CA 125 (JUAN JOSE) 987.5 09/21/19 07:30: Carcinoembryonic Ag 167.64 H Status: lab reviewed by me A/P - Problem (1) Anemia Current Visit: Yes Code(s): D64.9 - ANEMIA, UNSPECIFIED Status: Acute Qualifiers: Anemia type: other cause (2) Hepatic failure Current Visit: Yes Status: Acute (3) Leukocytosis Current Visit: Yes Code(s): D72.829 - ELEVATED WHITE BLOOD CELL COUNT, UNSPECIFIED Status: Acute (4) Metastatic disease Current Visit: Yes Code(s): C79.9 - SECONDARY MALIGNANT NEOPLASM OF UNSPECIFIED SITE Status: Acute (5) Pancreatic mass Current Visit: Yes Status: Acute - Plan Plan: 1. planned liver biopsy postponed for INR 1.7 2. CA 19-9 elevated, consistent with pancreatic ca 3. Bilirubin increasing due to intrahepatic lesions 4. discussed like diagnosis and prognosis 5. recheck labs in am, will transfuse if hgb < 7. Need tylenol, benadryl prior to transfusion as reaction in past. 6. overall poor prognosis.
[2019-09-22] MEDS: Cefepime 2 GM in Sodium Chloride 0.9% 100 ML IVPB SCH ×2 (09:46→20:10)
[2019-09-22] MEDS: Famotidine/PF 20 mg/2ml Vial SLOW IVP SCH ×2 (09:46→20:08)
--- NOTE | 2019-09-22 14:52 | PQF ---
DATE: 09-22-19 ATTN: DR. KIMBERLY OATES Please exercise your independent, professional judgment in responding to the clarification form. Clinical indicators are provided on the bottom of this form for your review Please check appropriate box(s): [ X ] Hyponatremia [ ] Insignificant Lab Values [ ] Other diagnosis [ ] Unable to determine In addition, please specify: Present on Admission (POA): [ X ] Yes [ ] No [ ] Unable to determine For continuity of documentation, please document condition throughout progress notes and discharge summary. Thank You. CLINICAL INDICATORS - SIGNS / SYMPTOMS/ LABS are present in the medical record: SODIUM: 09-20-19: 133 09-21-19: 131 09-22-19: 128 ER NOTES 09-20-19: WEAKNESS, NAUSEA, CHILLS, SWEATS H&P 09-20-19: HE HAD NO APPETITE AND WAS NOT EATING MUCH AT ALL. RISK FACTORS: H&P 09-20-19: HE HAD NO APPETITE AND WAS NOT EATING MUCH AT ALL. TREATMENT: SERIES OF LABS 09-20-19 TO 09-22-19 (This form is maintained as a part of the permanent medical record) 2014 [employer] All Rights Reserved [email or web address] Office: [phone] [facility]
--- NOTE | 2019-09-22 18:42 | PRG ---
DATE OF SERVICE: 09/22/2019 SUBJECTIVE: The patient is weak, poor appetite with very little intake. No nausea, vomiting, or abdominal pain. He does have some hiccups only when he tries to eat. PHYSICAL EXAMINATION: VITAL SIGNS: Temperature is 99.3, blood pressure 106/56, and pulse of 96. GENERAL: He is alert, weak appearing, but in no distress. HEENT: Exam shows mildly icteric sclerae. NECK: Supple. CV: Shows normal S1 and S2. Regular rate and rhythm. CHEST: Exam shows a breath sounds. ABDOMEN: Mildly protuberant, but soft. No tympany. He does have active bowel sounds. EXTREMITIES: Show trace pretibial edema. LABORATORY DATA: Sodium 128, potassium 4.6, chloride 95, CO2 of 25, creatinine 0.62, bilirubin 4.8. AST 67, ALT 36. CA-19-9 over 56,000. WBCs 30.3, hemoglobin 7.2, and platelet count of 338. ASSESSMENT: 1. Diffuse metastatic disease, likely pancreatic as primary. 2. Elevation of bilirubin from compression of small bowel ducts from metastatic tumor burden in the liver, no big duct obstruction. 3. Leukocytosis and thrombocytosis, secondary and reactive to tumor. 4. Anemia, stable without any signs of gastrointestinal bleeding. RECOMMENDATIONS: 1. We will start on Megace for appetite stimulation. 2. Culture negative after one day, can discontinue antibiotics if culture is negative after 48 hours. 3. No indication or plan for any other GI tests at this point. Job ID: [id number]
[2019-09-23] MEDS: Morphine 4 MG/ML VIAL SLOW IVP PRN ×3 (02:16→17:30)
[2019-09-23] MEDS: Senokot S 8.6-50 MG TAB PO PRN (02:21)
[2019-09-23] MEDS: Acetaminophen 325 MG TAB PO PRN ×3 (02:21→18:10)
[2019-09-23 05:04] LABS: INR-International Normal Ratio 1.7; PTT 31.1 SEC (22.9-36.1); Prothrombin Time 19.8 SEC (12.0-14.7)
[2019-09-23] MEDS: metroNIDAZOLE 500 MG in Premix Bag 1 BAG IVPB SCH (06:19)
[2019-09-23] MEDS: Famotidine/PF 20 mg/2ml Vial SLOW IVP SCH ×2 (08:29→21:05)
[2019-09-23] MEDS: Megestrol Acetate 800 MG/20 ML UDCUP PO SCH (08:32)
--- NOTE | 2019-09-23 08:55 | PDOC.HOSPP ---
- Subjective Encounter Date: 09/23/19 Encounter Time: 12:30 Subjective: Patient reports feeling fatigued. Not really hungry. Stomach pain on and off. Fevers early this morning. No new complaints. - Objective Vital Signs & Weight: Vital Signs (12 hours) Temp Pulse Resp BP Pulse Ox 09/23/19 08:00 98.5 F 108 H 16 125/59 L 94 L 09/23/19 03:51 99.7 F H 103 H 16 113/57 L 97 09/23/19 03:22 101.7 F H 09/23/19 02:15 101.8 F H 09/22/19 23:21 98.7 F 96 16 112/56 L 98 09/22/19 21:41 100.2 F H Weight Admit Weight 194 lb Weight 194 lb I&O: 09/22/19 09/23/19 09/24/19 06:59 06:59 06:59 Intake Total 1474 Output Total 450 1100 Balance -450 374 Result Diagrams: 09/22/19 05:12 09/22/19 04:29 Hospitalist ROS - Review of Systems Constitutional: reports: fever. denies: chills Respiratory: denies: cough, shortness of breath Cardiovascular: reports: edema. denies: chest pain, palpitations, orthopnea Gastrointestinal: reports: abdominal pain. denies: nausea, vomiting, diarrhea, constipation Genitourinary: denies: dysuria, hematuria - Medication Medications: Active Medications Generic Name Dose Route Start Last Admin Trade Name Freq PRN Reason Stop Dose Admin Acetaminophen 650 mg 09/20/19 20:17 09/23/19 02:21 Tylenol PO 650 mg Q4H PRN Administration Headache/Fever/Mild Pain (1-3) Famotidine 20 mg 09/20/19 21:00 09/23/19 08:29 Pepcid SLOW IVP 20 mg Q12HR SARAH Administration Megestrol Acetate 800 mg 09/23/19 09:00 09/23/19 08:32 Megace PO Not Given DAILY SARAH Morphine Sulfate 4 mg 09/20/19 20:17 09/23/19 07:49 Morphine SLOW IVP 4 mg Q4H PRN Administration Severe Pain (7-10) Ondansetron HCl 4 mg 09/20/19 20:17 09/21/19 21:23 Zofran IVP 4 mg Q6H PRN Administration Nausea/Vomiting Senna/Docusate Sodium 2 tab 09/20/19 20:17 09/23/19 02:21 Senokot S PO 2 tab BID PRN Administration Constipation Sodium Chloride 10 ml 09/21/19 09:00 09/22/19 19:02 Flush - Normal Saline IVF 10 ml Q12HR SARAH Administration Sodium Chloride 10 ml 09/21/19 08:09 09/23/19 06:19 Flush - Normal Saline IVF 10 ml PRN PRN Administration Saline Flush Tramadol HCl 50 mg 09/20/19 20:17 09/21/19 02:58 Ultram PO 50 mg Q6H PRN Administration Mild Pain (1-3) - Exam General Appearance: NAD, awake alert Eye: scleral icterus ENT: moist mucosa Heart: RRR, no murmur, no gallops, no rubs Respiratory: CTAB, no wheezes, no rales, no ronchi Gastrointestinal: soft, normal bowel sounds, tender to palpation Extremities: 1+ LE edema Neurological: cranial nerve grossly intact, no focal deficits Psychiatric: normal affect, normal behavior, A&O x 3 Hosp A/P (1) Pancreatic mass Status: Acute (2) Metastatic disease Code(s): C79.9 - SECONDARY MALIGNANT NEOPLASM OF UNSPECIFIED SITE Status: Acute (3) Leukocytosis Code(s): D72.829 - ELEVATED WHITE BLOOD CELL COUNT, UNSPECIFIED Status: Acute (4) Anemia Code(s): D64.9 - ANEMIA, UNSPECIFIED Status: Acute Qualifiers: Anemia type: other cause (5) Jaundice Code(s): R17 - UNSPECIFIED JAUNDICE Status: Acute (6) Hepatic failure Status: Acute (7) Hyponatremia Code(s): E87.1 - HYPO-OSMOLALITY AND HYPONATREMIA Status: Acute - Plan CT scan of chest, abd, pelvis consistent with metastatic pancreatic cancer. Heme /Onc and GI consulted, plan for liver biopsy, attempt again tomorrow after Vitamin K Leukocytosis, Fever to 101. General agreement of consultants is that this is paraneoplastic, not infectious. Cultures negative at 48 hours and no source of infection determined. Will d/c antibiotics. Anemia worsened after oral fluids in the ER. No evidence of bleeding at this time. Heme/Onc consulted. Transfuse as needed. Hyponatremia worsened some since admit. 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 Will need to restrict fluids. May also be related to poor po/salt intake. Poor prognosis. Palliative care following.
--- NOTE | 2019-09-23 09:24 | PDOC.MOPN ---
Interval History: right shoulder pain controlled with pain medications. - Vital Signs Vital Signs: Vital Signs (12 hours) Temp Pulse Resp BP Pulse Ox 09/23/19 08:00 98.5 F 108 H 16 125/59 L 94 L 09/23/19 03:51 99.7 F H 103 H 16 113/57 L 97 09/23/19 03:22 101.7 F H 09/23/19 02:15 101.8 F H 09/22/19 23:21 98.7 F 96 16 112/56 L 98 09/22/19 21:41 100.2 F H Weight Admit Weight 194 lb Weight 194 lb - Physical Exam General: Alert, Oriented x3, No acute distress HEENT: Atraumatic, PERRLA, EOMI, Mucous membr. moist/pink Lungs: Clear to auscultation, Normal air movement Cardiovascular: Regular rate, Normal S1, Normal S2, No murmurs, Gallops, Rubs Abdomen: Normal bowel sounds, Soft, No tenderness, No hepatospenomegaly, No masses, Other (distended) Extremities: No clubbing, No cyanosis, No edema, Normal pulses, No tenderness/ swelling Skin: No rashes, No breakdown, No significant lesion Neurological: Normal gait, Normal speech Psych/Mental Status: Mental status NL, Mood NL - Labs Result Diagrams: 09/22/19 05:12 09/22/19 04:29 Lab results: Laboratory Results - last 24 hr 09/23/19 04:42: PT 19.8 H, INR 1.7, APTT 31.1 Status: lab reviewed by me A/P - Problem (1) Anemia Current Visit: Yes Code(s): D64.9 - ANEMIA, UNSPECIFIED Status: Acute Qualifiers: Anemia type: other cause (2) Hepatic failure Current Visit: Yes Status: Acute (3) Leukocytosis Current Visit: Yes Code(s): D72.829 - ELEVATED WHITE BLOOD CELL COUNT, UNSPECIFIED Status: Acute (4) Metastatic disease Current Visit: Yes Code(s): C79.9 - SECONDARY MALIGNANT NEOPLASM OF UNSPECIFIED SITE Status: Acute (5) Pancreatic mass Current Visit: Yes Status: Acute - Plan Plan: FFP prior to liver biopsy Pain control Palliative care for goals and advanced directives
--- NOTE | 2019-09-23 10:50 | PDOC.PALCO ---
Palliative Care Consult - Consult Details Requesting Physician: Dr Mena Reason for Consult: goals of care, family support, complex decision-making Family Members Present: Daughter - Pertinent HPI 74 year old male who had an onset of lower extremity edema over the past two months and then onset of congestion and fever, and eventually placed on abx and steroids. Symptoms evolved and Mr Farah became weaker with decrease in appetite and upper abdominal pain. Followed up with primary care who sent him to the emergency room for further evaluation. ER identified leukocytosis of 40, 000 but patient afebrile, abnormal hemoglobin from a normal HGB 3 months ago, new mass on liver that was suspicious for metastatic disease. Admitted to oncology for further evaluation. Mr Farah has received FFP and is going for a liver biopsy today. Pain had onset and is currently managed. - Social History Smoking Status: Unknown if ever smoked Drug Use History: none Living Situation: independent - Medications MAR Reviewed: Yes - Allergies Allergies/Adverse Reactions: Allergies Allergy/AdvReac Type Severity Reaction Status Date / Time amoxicillin Allergy Verified 09/20/19 20:27 - Subjective Resting, currently NPO. States his appetite is currently fair, denies pain however had recently received pain medication and is intermittently drifting to sleep. Easy to arouse. - ROS Constitutional: alert, weakness Eyes: other (denies drainage, ocular irritation) ENT: dry mouth, other (denies difficulity swallowing) Respiratory: other (negative for shortness of breath at time of assessment.) Cardiology: edema Gastrointestinal: abdominal pain Musculoskeletal: other (negative for pain at time of assessment) Skin: dry - Objective Vital Signs: Vital Signs - Most Recent Temp Pulse Resp BP Pulse Ox 98.5 F 108 H 16 125/59 L 94 L 09/23/19 08:00 09/23/19 08:00 09/23/19 08:00 09/23/19 08:00 09/23/19 08:00 Palliative Performance Scale: 60 - Advance Directives Medical Power of Bearing Ring Assembler: Daughter Mounika Pedroza - Physical Exam Constitutional: ill appearing HEENT: EOMI, moist MMs, sclera anicteric Respiratory: clear to auscultation bilateral, unlabored breathing Cardiovascular: RRR Gastrointestinal: continent Deviation from normal: Tenderness, distended Genitourinary: continent Musculoskeletal: no cyanosis, no clubbing, edema present Neurology: moves all 4 limbs Psychiatric: A&O x 3 Deviation from normal: Mildly depressed - Problem List (1) Palliative care encounter Code(s): Z51.5 - ENCOUNTER FOR PALLIATIVE CARE Current Visit: Yes Status: Acute (2) Anemia Code(s): D64.9 - ANEMIA, UNSPECIFIED Current Visit: Yes Status: Acute Qualifiers: Anemia type: other cause (3) Hepatic failure Current Visit: Yes Status: Acute (4) Leukocytosis Code(s): D72.829 - ELEVATED WHITE BLOOD CELL COUNT, UNSPECIFIED Current Visit : Yes Status: Acute (5) Metastatic disease Code(s): C79.9 - SECONDARY MALIGNANT NEOPLASM OF UNSPECIFIED SITE Current Visit: Yes Status: Acute (6) Pancreatic mass Current Visit: Yes Status: Acute - Plan/Recommendations Plan: Initial visit. Daughter and patient state they are waiting for the liver biopsy to be done to have all of the information to form a decision. Gently discussed that regardless of findings all therapies would be palliative in nature. Awaiting to have liver biopsy today at 1pm. Discussed resuscitiaotn status, Farzaneh (MPOA) states he father would not want to be intubated, we will revisit resuscitation status after procedure to ensure resuscitation measures are inline with patient wishes, may consider chemical only. Discussed that not only consideration be given to measures to mitigate cancer with oncology but as a family to discuss things that are important and they wish to do as well. Revisited J Keila ACNP with oncology conversation with them as well as possible life expectancy of 3 months-3 years. *Revisit resuscitation status after biopsy/consider chemical only? *identify goals of care that are multi faceted including treatment with best care and worse case. *Identify person goals of care for patient and family to focus on aside from treatment options. *Palliative Care to continue to support patient and family. *Biotene for dry mouth *consider scheduling medications to prevent constipation [75] minutes spent on this encounter with >50% of the time in counseling and coordination of care. Thank you for this very appropriate consult.
[2019-09-23] MEDS ORDERED: BIOTENE MOUTH SPRAY 44.3 ML MM PRN (11:39)
[2019-09-23] MEDS ORDERED: Fentanyl 100 MCG/2 ML VIAL ONE (12:50)
[2019-09-23] MEDS ORDERED: Sodium Bicarbonate 2.5 MEQ/5 ML VIAL ONE (12:51)
[2019-09-23] MEDS ORDERED: Midazolam HCl 2 mg/2 ml Vial ONE (12:51)
[2019-09-23] MEDS: BIOTENE MOUTH SPRAY 44.3 ML MM SCH ×2 (14:44→21:06)
--- NOTE | 2019-09-23 15:09 | CT ---
EXAM: CT Liver Perc Biopsy PROVIDED CLINICAL HISTORY: Multiple hepatic metastatic lesions with large hypodense mass in the pancreatic tail. Biopsy was requ ested. COMPARISON: CT abdomen on 09/20/2019. TECHNIQUE: The procedure including the risks and complications were explained to the patient, and informed conse nt was obtained. Patient was placed on the CT scan table in a right anterior oblique position. Patient was administered of FFP intravenously before and during the procedure as well as postprocedur e. Limited noncontrasted CT scan was obtained through the region of the right hepatic lobe with grid loc alizer in place. An area was marked and then meticulously prepped and draped in usual sterile fashion. Skin and subcutaneous tissues were infiltrated with buffered 1% lidocaine for local anesthes ia. A small skin incision was made. A 17-gauge guide needle was advanced followed by axial noncontrasted CT images. The needle was then placed into the liver at the most proximal margin of the mass. Approximately three 18-gauge core needle biopsy specimens were then obtained utilizing coaxial technique. However, only necrotic material was obtained. As a result, the needle was advanced to the more medial margin of the mass and 2 additional biopsy specimens were obtained. Few atypical cells were noted in addition to necrotic material. As result, the needle was again further a dvanced, and an additional 2 biopsy specimens were obtained again yielding necrotic material as well as atypical cells. No additional biopsy specimens were obtained at this time. Final pathology re sults are currently pending. The inner stylette was replaced, and the needle was removed. Hemostasis was achieved with direct pres sure. Dry sterile dressing was placed. Follow-up noncontrasted CT scan was obtained through the level of the biopsy site which demonstrated no evidence of a hematoma or subcapsular fluid collection . Patient's vital signs remained stable during the procedure as well as postprocedure. IMPRESSION: 1. Multiple hypodense hepatic lesions with large pancreatic tail hypodense mass. 2. Technically successful percutaneous biopsy of a hypodense mass right hepatic lobe. Large amount of necrotic material was obtained. However, atypical cells were also obtained. Pathology is currently pending.
[2019-09-23] MEDS ORDERED: Bisacodyl 10 MG SUPP PR PRN (20:32)
[2019-09-23] MEDS: Bisacodyl 5 MG TAB PO PRN (21:06)
[2019-09-23] MEDS: Melatonin 3 MG TAB PO PRN (21:07)
--- NOTE | 2019-09-23 22:56 | PRG ---
DATE OF SERVICE: 09/23/2019 SUBJECTIVE: The patient is rather sleepy, but arousable. Poor appetite continues with very little intake. He denies any nausea or vomiting. He does have vague upper abdominal pain after liver biopsy earlier this afternoon. PHYSICAL EXAMINATION: VITAL SIGNS: Temperature is 99.8, blood pressure 128/60, pulse of 108. GENERAL: He appears to be weak but in no distress. HEENT: Shows mildly icteric sclerae. Oropharynx is clear. NECK: Supple. CV: Shows normal S1, S2. Regular rate and rhythm. CHEST: Shows breath sounds, poor excursion. ABDOMEN: Protuberant, mild, nontender. He does have active bowel sounds. EXTREMITIES: Shows 1+ edema. LABORATORY DATA: None. ASSESSMENT: 1. Diffuse metastatic disease and possibly carcinomatosis by CT, likely pancreatic primary. 2. Elevation of bilirubin, stable. I suspect this is from small bile duct cholestasis from metastatic tumor burden. There is no big biliary duct obstruction. 3. Leukocytosis and thrombocytosis, likely reactive and secondary to tumor. 4. Low-grade fever. 5. Blood culture negative at 48 hours. 6. Anemia without signs of gastrointestinal bleeding. RECOMMENDATIONS: 1. Continue Megace for appetite stimulation. 2. Can discontinue antibiotics as his blood culture is negative after 48 hours. 3. No other GI test is indicated or planned at this point. GI Service will sign off, please call if needed. Job ID: [id number] MTDD
[2019-09-24] MEDS: Morphine 4 MG/ML VIAL SLOW IVP PRN (04:04)
[2019-09-24 04:26] LABS: Hemoglobin 8.1 g/dL (14.0-18.0); Mean Corpuscular Hemoglobin 27.1 pg (27.0-31.0); Mean Corpuscular Volume 90.1 fL (78.0-98.0); Mean Platelet Volume 7.9 fL (7.4-10.4); Platelet Count 389 thou/uL (130-400); RBC Distribution Width 16.6 % (11.5-14.5); Red Blood Cell (RBC) Count 3.01 mill/uL (4.70-6.10); White Blood Cell (WBC) Count 52.8 thou/uL (4.8-10.8)
[2019-09-24 04:43] LABS: Anion Gap 16 mmol/L (10-20); BUN (Urea Nitrogen) 14 mg/dL (8.4-25.7); Calc. Creatinine Clearance 139 mL/min (70-130); Calcium 8.7 mg/dL (7.8-10.44); Carbon Dioxide 25 mmol/L (23-31); Chloride 94 mmol/L (98-107); Estimated GFR-MDRD Greater than 90; Glucose 131 mg/dL (83-110); Potassium 4.6 mmol/L (3.5-5.1); Sodium 130 mmol/L (136-145)
[2019-09-24 04:56] LABS: Band 2 % (5-11); Hypochromia SLIGHT = 6-15 cells (100X) (0-5/hpf); Lymphocytes 11 % (21-51); MDiff Complete? YES; Monocytes 9 % (0-10); Neutrophil 78 % (42-75); Platelet Morphology Comment Appears Adequate
[2019-09-24] MEDS ORDERED: Lorazepam 2 MG/ML VIAL SLOW IVP PRN (06:27)
[2019-09-24] MEDS ORDERED: Lorazepam 2 MG/ML VIAL SLOW IVP SCH (06:30)
[2019-09-24] MEDS: Polyethylene Glycol 3350 17 GM Packet PO SCH (08:45)
[2019-09-24] MEDS: Megestrol Acetate 800 MG/20 ML UDCUP PO SCH (08:45)
[2019-09-24] MEDS: Famotidine/PF 20 mg/2ml Vial SLOW IVP SCH ×2 (08:45→19:43)
[2019-09-24] MEDS: BIOTENE MOUTH SPRAY 44.3 ML MM SCH ×3 (08:52→19:49)
--- NOTE | 2019-09-24 13:36 | PDOC.HOSPP ---
- Subjective Subjective: Confused and agitated when awake. Though he is very somnolent and falls asleep midsentence. Patient with delirium, disruption and a sleep-wake cycle. Recommended stopping narcotic medication and benzodiazepine medication that will worsen this especially with him being so sleepy. Recommended adjusting categorization status, family would like to wait until pathology reports finalized. Time was given for questions, all answered in detail. - Objective Vital Signs & Weight: Vital Signs (12 hours) Temp Pulse Resp BP Pulse Ox 09/24/19 12:00 98.6 F 108 H 22 H 107/58 L 95 09/24/19 08:00 99 F 126 H 22 H 142/63 H 94 L 09/24/19 04:34 118 H 09/24/19 04:00 99.0 F 130 H 18 135/72 95 Weight Admit Weight 194 lb Weight 194 lb I&O: 09/23/19 09/24/19 09/25/19 06:59 06:59 06:59 Intake Total 1474 1297 Output Total 1100 500 Balance 374 797 Result Diagrams: 09/24/19 04:05 09/24/19 04:05 Radiology Reviewed by me: Yes Hospitalist ROS - Review of Systems All other systems reviewed; all pertinent +/- noted in HPI/Subj - Medication Medications: Active Medications Generic Name Dose Route Start Last Admin Trade Name Freq PRN Reason Stop Dose Admin Acetaminophen 650 mg 09/20/19 20:17 09/23/19 18:10 Tylenol PO 650 mg Q4H PRN Administration Headache/Fever/Mild Pain (1-3) Bisacodyl 10 mg 09/23/19 20:32 09/23/19 21:06 Dulcolax PO 10 mg DAILYPRN PRN Administration Constipation Famotidine 20 mg 09/20/19 21:00 09/24/19 08:45 Pepcid SLOW IVP 20 mg Q12HR SARAH Administration Megestrol Acetate 800 mg 09/23/19 09:00 09/24/19 08:45 Megace PO 800 mg DAILY SARAH Administration Melatonin 3 mg 09/23/19 20:33 09/23/19 21:07 Melatonin PO 3 mg HS PRN Administration Insomnia Miscellaneous Medication 0 ml 09/23/19 15:00 09/24/19 08:52 Biotene Moisturizing Mouth MM 1 spray TID SARAH Administration Ondansetron HCl 4 mg 09/20/19 20:17 09/21/19 21:23 Zofran IVP 4 mg Q6H PRN Administration Nausea/Vomiting Polyethylene Glycol 17 gm 09/24/19 09:00 09/24/19 08:45 Miralax PO 17 gm DAILY SARAH Administration Senna/Docusate Sodium 2 tab 09/20/19 20:17 09/23/19 02:21 Senokot S PO 2 tab BID PRN Administration Constipation Sodium Chloride 10 ml 09/21/19 09:00 09/24/19 11:10 Flush - Normal Saline IVF 10 ml Q12HR SARAH Administration Sodium Chloride 10 ml 09/21/19 08:09 09/24/19 06:34 Flush - Normal Saline IVF 10 ml PRN PRN Administration Saline Flush Tramadol HCl 50 mg 09/20/19 20:17 09/21/19 02:58 Ultram PO 50 mg Q6H PRN Administration Mild Pain (1-3) - Exam General Appearance: NAD Eye: PERRL, anicteric sclera ENT: normocephalic atraumatic, moist mucosa Neck: supple, symmetric, no lymphadenopathy Heart: no murmur, no gallops, no rubs Respiratory: CTAB, no wheezes, no rales, no ronchi Gastrointestinal: soft, non-tender, no guarding, no rigidity Extremities: no edema Skin: no lesions, no rashes Neurological: cranial nerve grossly intact, no focal deficits Musculoskeletal: generalized weakness Psychiatric: not oriented, somnolent Hosp A/P (1) Pancreatic mass Status: Acute (2) Metastatic disease Code(s): C79.9 - SECONDARY MALIGNANT NEOPLASM OF UNSPECIFIED SITE Status: Acute (3) Anemia Code(s): D64.9 - ANEMIA, UNSPECIFIED Status: Acute Qualifiers: Anemia type: other cause (4) Hyponatremia Code(s): E87.1 - HYPO-OSMOLALITY AND HYPONATREMIA Status: Acute (5) Leukocytosis Code(s): D72.829 - ELEVATED WHITE BLOOD CELL COUNT, UNSPECIFIED Status: Acute (6) Delirium Code(s): R41.0 - DISORIENTATION, UNSPECIFIED Status: Acute - Plan Plan: medical unit - oncology floor oncology consultation, recommendations appreciated palliative care consultation, recommendations appreciated gastroenterology consultation, recommendations appreciated surgery consultation, recommendations appreciated status post liver biopsy, official pathology report pending metastatic disease identified on CT scan of the abdomen, pelvis, chest with diffuse metastasis to the abdominal cavity, chest cavity and spine leukocytosis secondary to cancer and not infectious process, blood cultures negative to date limit medications that will worsen delirium including IV narcotic medications and benzodiazepines symptomatic therapy with Seroquel to help keep the patient calm frequent reorientation patient sleep-wake cycle is disrupted and circadian rhythms need to be reset replace electrolytes as needed blood pressure control blood sugar control pain control G.I. prophylaxis DVT prophylaxis prognosis: short and long-term prognosis are guarded despite maximal medical therapy
--- NOTE | 2019-09-24 14:43 | PDOC.MOPN ---
Interval History: very weak, eating poorly. - Vital Signs Vital Signs: Vital Signs (12 hours) Temp Pulse Resp BP Pulse Ox 09/24/19 12:00 98.6 F 108 H 22 H 107/58 L 95 09/24/19 08:00 99 F 126 H 22 H 142/63 H 94 L 09/24/19 04:34 118 H 09/24/19 04:00 99.0 F 130 H 18 135/72 95 Weight Admit Weight 194 lb Weight 194 lb - Physical Exam General: Alert, Oriented x3, No acute distress HEENT: Atraumatic, PERRLA, EOMI, Mucous membr. moist/pink Lungs: Clear to auscultation, Normal air movement Cardiovascular: Regular rate, Normal S1, Normal S2, No murmurs, Gallops, Rubs Abdomen: Normal bowel sounds, Soft, No tenderness, No hepatospenomegaly, No masses, Other (distended) Extremities: No clubbing, No cyanosis, No edema, Normal pulses, No tenderness/ swelling Skin: No rashes, No breakdown, No significant lesion Neurological: Normal speech - Labs Result Diagrams: 09/24/19 04:05 09/24/19 04:05 Lab results: Laboratory Results - last 24 hr 09/24/19 04:05: WBC 52.8 H*, RBC 3.01 L, Hgb 8.1 L, Hct 27.1 L, MCV 90.1, MCH 27.1, MCHC 30.0 L, RDW 16.6 H, Plt Count 389, MPV 7.9, Neutrophils % (Manual) 78 H, Band Neuts % (Manual) 2 L, Lymphocytes % (Manual) 11 L, Monocytes % ( Manual) 9, Neutrophils # Not Reportable, Lymphocytes # Not Reportable, Hypochromia SLIGHT = 6-15 cells, Plt Morphology Comment Appears Adequate 09/24/19 04:05: Sodium 130 L, Potassium 4.6, Chloride 94 L, Carbon Dioxide 25, Anion Gap 16, BUN 14, Creatinine 0.60 L, Estimated GFR (MDRD) Greater than 90, Glucose 131 H, Calcium 8.7 09/20/19 20:33: Haptoglobin 266 Status: lab reviewed by me A/P - Problem (1) Anemia Current Visit: Yes Code(s): D64.9 - ANEMIA, UNSPECIFIED Status: Acute Qualifiers: Anemia type: other cause (2) Hepatic failure Current Visit: Yes Status: Acute (3) Leukocytosis Current Visit: Yes Code(s): D72.829 - ELEVATED WHITE BLOOD CELL COUNT, UNSPECIFIED Status: Acute (4) Metastatic disease Current Visit: Yes Code(s): C79.9 - SECONDARY MALIGNANT NEOPLASM OF UNSPECIFIED SITE Status: Acute (5) Pancreatic mass Current Visit: Yes Status: Acute - Plan Plan: We had a long conversation about his weakness and poor appetite. encouraged to be oob with meals. and work with PT Discussed code status. His MPOA was present. She understands the seriously of diagnosis but is waiting for siblings to arrive to discuss further. If he has not been more active over the weekend, he may need inpatient hospice. Otherwise, to facility as he is not able to go home and live alone. Will follow.
[2019-09-24] MEDS: Melatonin 3 MG TAB PO PRN (19:41)
[2019-09-24] MEDS: traMADol HCl 50 MG TAB PO PRN (19:42)
[2019-09-25] MEDS: traMADol HCl 50 MG TAB PO PRN ×3 (02:46→23:52)
[2019-09-25] MEDS: Ondansetron PF 4 MG/2 ML Vial IVP PRN (02:57)
[2019-09-25] MEDS: Famotidine/PF 20 mg/2ml Vial SLOW IVP SCH ×2 (08:40→20:21)
[2019-09-25] MEDS: Megestrol Acetate 800 MG/20 ML UDCUP PO SCH (08:40)
[2019-09-25] MEDS: BIOTENE MOUTH SPRAY 44.3 ML MM SCH ×3 (08:41→20:29)
[2019-09-25] MEDS: Polyethylene Glycol 3350 17 GM Packet PO SCH (09:01)
--- NOTE | 2019-09-25 12:54 | RAD ---
Portable chest: HISTORY: Shortness of breath COMPARISON: 09/20/2019 FINDINGS:New patchy infiltrate/atelectasis in the right medial lung base concerning for pneumonia. Fany ngs otherwise clear and unchanged IMPRESSION:New infiltrate in the medial right lung base.
[2019-09-25 13:17] LABS: Actual Bicarbonate (HCO3a) 26.9 mEq/L (22-28); Base Excess (BEa) 3.3 mEq/L (-2.0 to +3.0); CO2 Tension 36.7 mmHg (35.0-45.0); Hemoglobin (Hb) 8.6 g/dL (14.0-18.0); O2 Tension (PaO2) 52.6 mmHg (> 70.0); pH, Arterial 7.48 (7.35-7.45)
[2019-09-25 13:18] LABS: Carboxyhemoglobin (COHb) 1.1 gm% (0.0-3.0); Potassium - ABG Lab 4.14 mmol/L (3.70-5.30)
[2019-09-25 13:19] LABS: ALV-art Gradient 51.255 (0-20); Analyzer IN Cardio OR; Calcium, Ionized 1.18 mmol/L (1.12-1.30); Puncture Site LRA
--- NOTE | 2019-09-25 13:38 | PDOC.HOSPP ---
- Subjective Subjective: This a.m. patient significantly improved. Knows his name, knows he is in the [facility], those the year, and he knows that he has been admitted for cancer. I was later paged in the afternoon that he was having some trouble breathing. ABG and chest x-ray reviewed. CXR with new right middle lobe infiltrate, diffuse metastatic disease. Will add pulmonary consult. - Objective Vital Signs & Weight: Vital Signs (12 hours) Temp Pulse Resp BP Pulse Ox 09/25/19 13:19 98.5 F 102 H 24 H 112/61 97 09/25/19 08:00 92 L 09/25/19 07:36 97.8 F 100 18 115/63 92 L Weight Admit Weight 194 lb Weight 194 lb I&O: 09/24/19 09/25/19 09/26/19 06:59 06:59 06:59 Intake Total 1297 1100 Output Total 500 425 150 Balance 797 675 -150 Result Diagrams: 09/24/19 04:05 09/24/19 04:05 Additional Labs: Accuchecks 09/25/19 13:14 POC Glucose 166 H Radiology Reviewed by me: Yes Hospitalist ROS - Review of Systems All other systems reviewed; all pertinent +/- noted in HPI/Subj - Medication Medications: Active Medications Generic Name Dose Route Start Last Admin Trade Name Freq PRN Reason Stop Dose Admin Acetaminophen 650 mg 09/20/19 20:17 09/23/19 18:10 Tylenol PO 650 mg Q4H PRN Administration Headache/Fever/Mild Pain (1-3) Bisacodyl 10 mg 09/23/19 20:32 09/23/19 21:06 Dulcolax PO 10 mg DAILYPRN PRN Administration Constipation Famotidine 20 mg 09/20/19 21:00 09/25/19 08:40 Pepcid SLOW IVP 20 mg Q12HR SARAH Administration Megestrol Acetate 800 mg 09/23/19 09:00 09/25/19 08:40 Megace PO 800 mg DAILY SARAH Administration Melatonin 3 mg 09/23/19 20:33 09/24/19 19:41 Melatonin PO 3 mg HS PRN Administration Insomnia Miscellaneous Medication 0 ml 09/23/19 15:00 09/25/19 08:41 Biotene Moisturizing Mouth MM 1 spray TID SARAH Administration Ondansetron HCl 4 mg 09/20/19 20:17 09/25/19 02:57 Zofran IVP 4 mg Q6H PRN Administration Nausea/Vomiting Polyethylene Glycol 17 gm 09/24/19 09:00 09/25/19 09:01 Miralax PO Not Given DAILY SARAH Senna/Docusate Sodium 2 tab 09/20/19 20:17 09/23/19 02:21 Senokot S PO 2 tab BID PRN Administration Constipation Sodium Chloride 10 ml 09/21/19 09:00 09/25/19 08:40 Flush - Normal Saline IVF 10 ml Q12HR SARAH Administration Sodium Chloride 10 ml 09/21/19 08:09 09/25/19 02:57 Flush - Normal Saline IVF 10 ml PRN PRN Administration Saline Flush Tramadol HCl 50 mg 09/20/19 20:17 09/21/19 02:58 Ultram PO 50 mg Q6H PRN Administration Mild Pain (1-3) Tramadol HCl 100 mg 09/20/19 20:17 09/25/19 02:46 Ultram PO 100 mg Q6H PRN Administration Moderate Pain (4-6) - Exam General Appearance: NAD, awake alert Eye: PERRL, anicteric sclera ENT: normocephalic atraumatic, moist mucosa Neck: supple, symmetric, no lymphadenopathy Heart: no murmur, no gallops, no rubs Respiratory: no rales, no ronchi, normal chest expansion, no tachypnea, wheezes (few faint) Gastrointestinal: soft, non-tender, no guarding, no rigidity Extremities: no edema Skin: no lesions, no rashes Neurological: cranial nerve grossly intact, no focal deficits Musculoskeletal: generalized weakness Psychiatric: normal affect, normal behavior, A&O x 3 Hosp A/P (1) Pancreatic mass Status: Acute (2) Metastatic disease Code(s): C79.9 - SECONDARY MALIGNANT NEOPLASM OF UNSPECIFIED SITE Status: Acute (3) Anemia Code(s): D64.9 - ANEMIA, UNSPECIFIED Status: Acute Qualifiers: Anemia type: other cause (4) Hyponatremia Code(s): E87.1 - HYPO-OSMOLALITY AND HYPONATREMIA Status: Acute (5) Leukocytosis Code(s): D72.829 - ELEVATED WHITE BLOOD CELL COUNT, UNSPECIFIED Status: Acute (6) Delirium Code(s): R41.0 - DISORIENTATION, UNSPECIFIED Status: Acute - Plan Plan: medical unit - oncology floor Pulmonology consultation, recommendations appreciated oncology consultation, recommendations appreciated palliative care consultation, recommendations appreciated gastroenterology consultation, recommendations appreciated surgery consultation, recommendations appreciated Restart Cefepime for pulm infiltrate in setting of metastatic disease CXR - new Right middle lobe infiltrate ABG with hypoxia and elevated Aa gradient Lovenox for DVT PPX status post liver biopsy, official pathology report pending metastatic disease identified on CT scan of the chest, abdomen, and pelvis with diffuse metastasis to the abdominal cavity, chest cavity and spine leukocytosis secondary to cancer, blood cultures negative to date limit medications that will worsen delirium including IV narcotic medications and benzodiazepines symptomatic therapy with Seroquel to help keep the patient calm frequent reorientation patient sleep-wake cycle is disrupted and circadian rhythms need to be reset replace electrolytes as needed blood pressure control blood sugar control pain control G.I. prophylaxis DVT prophylaxis prognosis: short and long-term prognosis are guarded despite maximal medical therapy
[2019-09-25] MEDS: Cefepime 2 GM in Sodium Chloride 0.9% 100 ML IVPB SCH (14:12)
--- NOTE | 2019-09-25 17:33 | CON ---
DATE OF CONSULTATION: 09/25/2019 CONSULTING PHYSICIAN: Dr. Cagle. REASON FOR CONSULTATION: Pneumonia. HISTORY OF PRESENT ILLNESS: The patient is a pleasant 74-year-old male, who has been in the hospital since September 20. His presenting symptoms were weakness, low back pain, and abdominal pain. He has been since found to have a large lesion in the pancreatic tail additionally. He has bilateral lung nodules suggestive of metastasis. He has a T11 vertebral body metastases. He also has liver metastases. He underwent a liver biopsy yesterday. Today, he was more short of breath. He underwent chest x-ray, which shows a right middle lobe infiltrate versus atelectasis. PAST MEDICAL HISTORY: 1. Hyperlipidemia. 2. Prostate cancer. 3. MANUEL. 4. Diverticulosis. 5. Renal cyst. PAST SURGICAL HISTORY: 1. Vasectomy. 2. Inguinal hernia repair bilaterally. 3. Prostatectomy. 4. Colonoscopy with polypectomy. SOCIAL HISTORY: He is . 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 FAMILY MEDICAL HISTORY: Remarkable for leukemia, aortic stenosis, and colon cancer. ALLERGIES: NONE. MEDICATIONS: Prior to admission; 1. Pravastatin. 2. Colace. 3. Valliant-3 fatty acid. 4. Aspirin. REVIEW OF SYSTEMS: Remarkable for about 5 pounds weight loss. No fever or chills. He has had occasional nausea. Denies any vomiting. No chest pain, hematemesis, melena, hematochezia, hematuria, or dysuria. PHYSICAL EXAMINATION: VITAL SIGNS: Temperature is 98.6, pulse 97, respirations 20, O2 saturation 97% on 3 L, and blood pressure 111/68. GENERAL: He is a chronically ill-appearing man, who is in no acute distress. HEENT: Remarkable for slightly icteric sclerae. Oropharynx is clear. NECK: No adenopathy or JVD. LUNGS: He has fairly clear lung dillon. CARDIAC: S1 and S2. Regular. ABDOMEN: Distended, tympanic. EXTREMITIES: No clubbing, cyanosis, or edema. LABORATORY DATA: His CA-19-9 antigen was 56,387. Sodium 130, potassium 4.6, chloride 94, CO2 of 25, BUN 16, creatinine 0.6, glucose 131, total bilirubin 4.8, and alkaline phosphatase 491. PH of 7.48, pCO2 of 36, and pO2 of 53 on room air. INR is 1.7. White blood cell count 52.8, hematocrit 27.1, and platelet count 389. IMAGING DATA: I reviewed the x-ray and CT scan personally. ASSESSMENT: 1. Pneumonia versus atelectasis. 2. Likely pancreatic cancer with spread to liver, spine, and lung. RECOMMENDATIONS: I agree with the cefepime and the breathing treatments as well as supplemental oxygen. This is a sad case, which is likely not to end well given the certainty of malignancy. We will be happy to follow with you. Job ID: [id number]
[2019-09-25] MEDS ORDERED: Enoxaparin Sodium 40 MG/0.4 ML SYRINGE SC SCH (21:00)
[2019-09-26] MEDS: Cefepime 2 GM in Sodium Chloride 0.9% 100 ML IVPB SCH ×2 (01:54→13:42)
[2019-09-26] MEDS: Acetaminophen 325 MG TAB PO PRN (04:39)
[2019-09-26] MEDS: traMADol HCl 50 MG TAB PO PRN ×3 (05:07→20:25)
[2019-09-26] MEDS: Ondansetron PF 4 MG/2 ML Vial IVP PRN (06:38)
[2019-09-26] MEDS: BIOTENE MOUTH SPRAY 44.3 ML MM SCH ×3 (09:26→20:27)
[2019-09-26] MEDS: Polyethylene Glycol 3350 17 GM Packet PO SCH (09:27)
[2019-09-26] MEDS: Famotidine/PF 20 mg/2ml Vial SLOW IVP SCH ×2 (09:27→20:22)
[2019-09-26] MEDS: Megestrol Acetate 800 MG/20 ML UDCUP PO SCH (09:27)
--- NOTE | 2019-09-26 10:54 | ULT ---
EXAM: Bilateral lower extremity venous duplex: Deep veins evaluated with color Doppler, spectral analysis, and compression. INDICATIONS: Bilateral lower extremity pain and edema. FINDINGS: Deep veins interrogated include common femoral vein, femoral vein, popliteal vein, and post erior tibial vein. There is bilateral deep vein thrombosis. There is thrombus and loss of compressibility involving the common femoral vein, femoral vein, and popliteal vein bilaterally. Minimal flow with Doppler seen on the left femoral vein. No significant flow seen in the right femoral vein. IMPRESSION: Positive study. Bilateral lower extremity deep vein thrombosis. Patient's nurse was notified of findings and she stated she would contact the ordering physician.
[2019-09-26] MEDS ORDERED: Apixaban 5 MG TAB PO SCH (11:00)
--- NOTE | 2019-09-26 12:41 | PRG ---
DATE OF SERVICE: 09/26/2019 SUBJECTIVE: The patient is about the same and no acute complaints. OBJECTIVE: VITAL SIGNS: Temperature 97.9, pulse 88, respirations 20, O2 saturation 98% on 3 L, blood pressure 111/61. HEENT: Remarkable for icteric sclerae, slightly jaundiced skin. NECK: No JVD. LUNGS: Clear anteriorly. CARDIAC: S1, S2 regular. ABDOMEN: Soft, slightly distended. EXTREMITIES: No edema. Doppler of lower extremity showed bilateral DVT. ASSESSMENT: 1. Likely pancreatic cancer. 2. Deep venous thrombosis. 3. Question pneumonia. PLAN: The patient is continuing with antibiotics. He will start Eliquis today. His prognosis remains very bad. Job ID: [id number]
--- NOTE | 2019-09-26 13:23 | PDOC.HOSPP ---
- Subjective Subjective: Seen and examined. Patient's mentation remains clear today. Slept well. Worsening lower extremity edema I ordered an ultrasound of the lower extremity which confirmed bilateral DVT. Starting oral and coagulation. I again discussed categorization status and he states he would like more time to think about it. Time was given for questions, all answered in detail. - Objective Vital Signs & Weight: Vital Signs (12 hours) Temp Pulse Resp BP Pulse Ox 09/26/19 11:17 88 20 09/26/19 09:40 98 09/26/19 08:05 97.9 F 92 18 111/61 98 09/26/19 07:17 80 12 09/26/19 04:00 97.9 F 100 20 110/56 L 96 Weight Admit Weight 194 lb Weight 194 lb I&O: 09/25/19 09/26/19 09/27/19 06:59 06:59 06:59 Intake Total 1100 1200 Output Total 425 820 Balance 675 380 Result Diagrams: 09/24/19 04:05 09/24/19 04:05 Radiology Reviewed by me: Yes Hospitalist ROS - Review of Systems All other systems reviewed; all pertinent +/- noted in HPI/Subj - Medication Medications: Active Medications Generic Name Dose Route Start Last Admin Trade Name Freq PRN Reason Stop Dose Admin Acetaminophen 650 mg 09/20/19 20:17 09/26/19 04:39 Tylenol PO 650 mg Q4H PRN Administration Headache/Fever/Mild Pain (1-3) Albuterol/Ipratropium 3 ml 09/25/19 15:00 09/26/19 11:17 Duoneb NEB 3 ml [id number] SARAH Administration Bisacodyl 10 mg 09/23/19 20:32 09/23/19 21:06 Dulcolax PO 10 mg DAILYPRN PRN Administration Constipation Famotidine 20 mg 09/20/19 21:00 09/26/19 09:27 Pepcid SLOW IVP 20 mg Q12HR SARAH Administration Cefepime HCl 2 gm/ Sodium 100 mls @ 200 mls/hr 09/25/19 14:00 09/26/19 01:54 Chloride IVPB 100 mls 0200,1400 SARAH Administration Megestrol Acetate 800 mg 09/23/19 09:00 09/26/19 09:27 Megace PO 800 mg DAILY SARAH Administration Melatonin 3 mg 09/23/19 20:33 09/24/19 19:41 Melatonin PO 3 mg HS PRN Administration Insomnia Miscellaneous Medication 0 ml 09/23/19 15:00 09/26/19 09:26 Biotene Moisturizing Mouth MM 1 spray TID SARAH Administration Ondansetron HCl 4 mg 09/20/19 20:17 09/26/19 06:38 Zofran IVP 4 mg Q6H PRN Administration Nausea/Vomiting Polyethylene Glycol 17 gm 09/24/19 09:00 09/26/19 09:27 Miralax PO 17 gm DAILY SARAH Administration Senna/Docusate Sodium 2 tab 09/20/19 20:17 09/23/19 02:21 Senokot S PO 2 tab BID PRN Administration Constipation Sodium Chloride 10 ml 09/21/19 09:00 09/26/19 09:27 Flush - Normal Saline IVF 10 ml Q12HR SARAH Administration Sodium Chloride 10 ml 09/21/19 08:09 09/26/19 01:54 Flush - Normal Saline IVF 10 ml PRN PRN Administration Saline Flush Tramadol HCl 50 mg 09/20/19 20:17 09/25/19 23:52 Ultram PO 50 mg Q6H PRN Administration Mild Pain (1-3) Tramadol HCl 100 mg 09/20/19 20:17 09/26/19 05:07 Ultram PO 100 mg Q6H PRN Administration Moderate Pain (4-6) - Exam General Appearance: NAD Eye: anicteric sclera ENT: normocephalic atraumatic, moist mucosa Neck: supple, symmetric Heart: no murmur, no gallops, no rubs Respiratory: no rales, no ronchi, normal chest expansion, wheezes (few faint) Gastrointestinal: soft, non-tender, no rigidity Extremities: 2+ LE edema Skin: no rashes Neurological: cranial nerve grossly intact, no focal deficits Musculoskeletal: generalized weakness Psychiatric: normal affect, normal behavior, A&O x 3 Hosp A/P (1) Pancreatic mass Status: Acute (2) Metastatic disease Code(s): C79.9 - SECONDARY MALIGNANT NEOPLASM OF UNSPECIFIED SITE Status: Acute (3) Anemia Code(s): D64.9 - ANEMIA, UNSPECIFIED Status: Acute Qualifiers: Anemia type: other cause (4) Hyponatremia Code(s): E87.1 - HYPO-OSMOLALITY AND HYPONATREMIA Status: Acute (5) Leukocytosis Code(s): D72.829 - ELEVATED WHITE BLOOD CELL COUNT, UNSPECIFIED Status: Acute (6) Delirium Code(s): R41.0 - DISORIENTATION, UNSPECIFIED Status: Acute - Plan Plan: medical unit - oncology floor Pulmonology consultation, recommendations appreciated oncology consultation, recommendations appreciated palliative care consultation, recommendations appreciated gastroenterology consultation, recommendations appreciated surgery consultation, recommendations appreciated Eliquis for LE DVT US LE positive for DVT Cefepime for pulm infiltrate in setting of metastatic disease CXR - new Right middle lobe infiltrate status post liver biopsy, official pathology report pending metastatic disease identified on CT scan of the chest, abdomen, and pelvis with diffuse metastasis to the abdominal cavity, chest cavity and spine leukocytosis secondary to cancer, blood cultures negative to date limit medications that will worsen delirium including IV narcotic medications and benzodiazepines symptomatic therapy with Seroquel to help keep the patient calm frequent reorientation patient sleep-wake cycle is disrupted and circadian rhythms need to be reset replace electrolytes as needed blood pressure control blood sugar control pain control G.I. prophylaxis DVT prophylaxis prognosis: short and long-term prognosis are guarded despite maximal medical therapy
[2019-09-26] MEDS: Senokot S 8.6-50 MG TAB PO PRN (20:26)
[2019-09-26] MEDS: Apixaban 5 MG TAB PO SCH (21:20)
[2019-09-27] MEDS: Cefepime 2 GM in Sodium Chloride 0.9% 100 ML IVPB SCH ×2 (01:50→14:01)
[2019-09-27] MEDS: traMADol HCl 50 MG TAB PO PRN ×3 (02:22→15:21)
[2019-09-27] MEDS: Megestrol Acetate 800 MG/20 ML UDCUP PO SCH (08:46)
[2019-09-27] MEDS: Apixaban 5 MG TAB PO SCH ×2 (08:46→20:43)
[2019-09-27] MEDS: Polyethylene Glycol 3350 17 GM Packet PO SCH (08:47)
[2019-09-27] MEDS: Famotidine/PF 20 mg/2ml Vial SLOW IVP SCH ×2 (08:47→20:45)
[2019-09-27] MEDS: BIOTENE MOUTH SPRAY 44.3 ML MM SCH ×3 (08:48→20:46)
--- NOTE | 2019-09-27 10:11 | PRG ---
DATE OF SERVICE: 09/27/2019 SUBJECTIVE: He is very depressed this morning. He says he is still having some difficulty with his breathing. OBJECTIVE: VITAL SIGNS: Temperature 97.9, pulse 105, respirations 22, O2 saturation 97% on 3 L, and blood pressure 109/55. HEENT: Unremarkable except for icteric sclera. NECK: No JVD. LUNGS: Coarse rhonchi. CARDIAC: S1 and S2. Regular. ABDOMEN: Soft. EXTREMITIES: No edema. LABORATORY DATA: No new labs were obtained today. ASSESSMENT: 1. Likely had pancreatic cancer with pulmonary metastasis. 2. Atelectasis versus pneumonia. PLAN: Continue incentive spirometry and antibiotics. Awaiting results of his liver biopsy. Job ID: [id number]
--- NOTE | 2019-09-27 14:30 | PDOC.MOPN ---
Interval History: Family meeting at bedside with 4 children present. Patient unable to stay awake during meeting. - Vital Signs Vital Signs: Vital Signs (12 hours) Temp Pulse Resp BP Pulse Ox 09/27/19 08:50 99 09/27/19 08:48 99 19 108/61 99 09/27/19 07:55 97.9 F 105 H 22 H 109/55 L 97 09/27/19 06:14 91 20 95 Weight Admit Weight 194 lb Weight 194 lb - Physical Exam General: No acute distress HEENT: Atraumatic, PERRLA, EOMI, Mucous membr. moist/pink Lungs: Other Cardiovascular: Regular rate Abdomen: Other (distended) Skin: No rashes, No breakdown, No significant lesion Neurological: Normal speech - Labs Result Diagrams: 09/24/19 04:05 09/24/19 04:05 Status: lab reviewed by me A/P - Problem (1) Anemia Current Visit: Yes Code(s): D64.9 - ANEMIA, UNSPECIFIED Status: Acute Qualifiers: Anemia type: other cause (2) Hepatic failure Current Visit: Yes Status: Acute (3) Leukocytosis Current Visit: Yes Code(s): D72.829 - ELEVATED WHITE BLOOD CELL COUNT, UNSPECIFIED Status: Acute (4) Metastatic disease Current Visit: Yes Code(s): C79.9 - SECONDARY MALIGNANT NEOPLASM OF UNSPECIFIED SITE Status: Acute (5) Pancreatic mass Current Visit: Yes Status: Acute - Plan Plan: spoke with Dr. Pérez, likely metastatic pancreatic carcinoma, await final results Discussed burden of disease and possible chemo treatment incl. Gemzar/Abraxane Patient more jaundice today, due to intrahepatic lesions new DVT, now on Eliquis Based on poor performance status, liver failure, tumor burden, recommend hospice family will discuss and let us know.
--- NOTE | 2019-09-27 15:09 | PDOC.HOSPP ---
- Subjective Subjective: Seen and examined. Family at bedside, time was given for questions, all answered in detail. I discussed all pertinent medical data to this point. Liver pathology rate remains pending. Patient has been more alert and awake for the past two days, significantly more than before when he was on narcotic medications for pain. Tramadol is controlling the pain down to level of a four or five out of 10 pain. - Objective Vital Signs & Weight: Vital Signs (12 hours) Temp Pulse Resp BP Pulse Ox 09/27/19 08:50 99 09/27/19 08:48 99 19 108/61 99 09/27/19 07:55 97.9 F 105 H 22 H 109/55 L 97 09/27/19 06:14 91 20 95 Weight Admit Weight 194 lb Weight 194 lb I&O: 09/26/19 09/27/19 09/28/19 06:59 06:59 06:59 Intake Total 1200 1100 Output Total 820 725 Balance 380 375 Result Diagrams: 09/24/19 04:05 09/24/19 04:05 Radiology Reviewed by me: Yes Hospitalist ROS - Review of Systems All other systems reviewed; all pertinent +/- noted in HPI/Subj - Medication Medications: Active Medications Generic Name Dose Route Start Last Admin Trade Name Freq PRN Reason Stop Dose Admin Acetaminophen 650 mg 09/20/19 20:17 09/26/19 04:39 Tylenol PO 650 mg Q4H PRN Administration Headache/Fever/Mild Pain (1-3) Albuterol/Ipratropium 3 ml 09/26/19 19:00 09/27/19 13:59 Duoneb NEB Not Given [id number] SARAH Apixaban 10 mg 09/26/19 21:00 09/27/19 08:46 Eliquis PO 10 mg BID SARAH Administration Bisacodyl 10 mg 09/23/19 20:32 09/23/19 21:06 Dulcolax PO 10 mg DAILYPRN PRN Administration Constipation Famotidine 20 mg 09/20/19 21:00 09/27/19 08:47 Pepcid SLOW IVP 20 mg Q12HR SARAH Administration Cefepime HCl 2 gm/ Sodium 100 mls @ 200 mls/hr 09/25/19 14:00 09/27/19 14:01 Chloride IVPB 100 mls 0200,1400 SARAH Administration Megestrol Acetate 800 mg 09/23/19 09:00 09/27/19 08:46 Megace PO 800 mg DAILY SARAH Administration Melatonin 3 mg 09/23/19 20:33 09/24/19 19:41 Melatonin PO 3 mg HS PRN Administration Insomnia Miscellaneous Medication 0 ml 09/23/19 15:00 09/27/19 14:08 Biotene Moisturizing Mouth MM 1 spray TID SARAH Administration Ondansetron HCl 4 mg 09/20/19 20:17 09/26/19 06:38 Zofran IVP 4 mg Q6H PRN Administration Nausea/Vomiting Polyethylene Glycol 17 gm 09/24/19 09:00 09/27/19 08:47 Miralax PO 17 gm DAILY SARAH Administration Senna/Docusate Sodium 2 tab 09/20/19 20:17 09/26/19 20:26 Senokot S PO 2 tab BID PRN Administration Constipation Sodium Chloride 10 ml 09/21/19 09:00 09/27/19 08:47 Flush - Normal Saline IVF 10 ml Q12HR SARAH Administration Sodium Chloride 10 ml 09/21/19 08:09 09/27/19 14:02 Flush - Normal Saline IVF 10 ml PRN PRN Administration Saline Flush Tramadol HCl 50 mg 09/20/19 20:17 09/26/19 14:02 Ultram PO 50 mg Q6H PRN Administration Mild Pain (1-3) Tramadol HCl 100 mg 09/20/19 20:17 09/27/19 08:53 Ultram PO 100 mg Q6H PRN Administration Moderate Pain (4-6) - Exam General Appearance: ill appearing Eye: PERRL ENT: normocephalic atraumatic, moist mucosa Neck: supple, symmetric, no lymphadenopathy Heart: no murmur, no gallops, no rubs Respiratory: no rales, no ronchi, normal chest expansion, no tachypnea, wheezes Gastrointestinal: soft, non-tender, no guarding, no rigidity Extremities: 2+ LE edema Skin: no rashes Neurological: cranial nerve grossly intact, no focal deficits Musculoskeletal: generalized weakness Psychiatric: oriented to person, oriented to place, somnolent Hosp A/P (1) Pancreatic mass Status: Acute (2) Metastatic disease Code(s): C79.9 - SECONDARY MALIGNANT NEOPLASM OF UNSPECIFIED SITE Status: Acute (3) Anemia Code(s): D64.9 - ANEMIA, UNSPECIFIED Status: Acute Qualifiers: Anemia type: other cause (4) Hyponatremia Code(s): E87.1 - HYPO-OSMOLALITY AND HYPONATREMIA Status: Acute (5) Leukocytosis Code(s): D72.829 - ELEVATED WHITE BLOOD CELL COUNT, UNSPECIFIED Status: Acute (6) Delirium Code(s): R41.0 - DISORIENTATION, UNSPECIFIED Status: Acute - Plan Plan: medical unit - oncology floor Pulmonology consultation, recommendations appreciated oncology consultation, recommendations appreciated palliative care consultation, recommendations appreciated gastroenterology consultation, recommendations appreciated surgery consultation, recommendations appreciated Eliquis for LE DVT US LE positive for DVT Cefepime for pulm infiltrate in setting of metastatic disease CXR - new Right middle lobe infiltrate status post liver biopsy, official pathology report pending metastatic disease identified on CT scan of the chest, abdomen, and pelvis with diffuse metastasis to the abdominal cavity, chest cavity and spine leukocytosis secondary to cancer, blood cultures negative to date limit medications that will worsen delirium including IV narcotic medications and benzodiazepines symptomatic therapy with Seroquel to help keep the patient calm frequent reorientation patient sleep-wake cycle is disrupted and circadian rhythms need to be reset replace electrolytes as needed blood pressure control blood sugar control pain control G.I. prophylaxis DVT prophylaxis prognosis: short and long-term prognosis are guarded despite maximal medical therapy
[2019-09-27] MEDS: Bisacodyl 5 MG TAB PO PRN (20:41)
[2019-09-27] MEDS: HYDROcodone/Acetaminophen 5/325 mg Tablet PO PRN (20:41)
[2019-09-28] MEDS: Cefepime 2 GM in Sodium Chloride 0.9% 100 ML IVPB SCH (01:52)
[2019-09-28] MEDS: HYDROcodone/Acetaminophen 5/325 mg Tablet PO PRN ×2 (01:56→13:52)
[2019-09-28 07:59] VITALS: BP 121/67; TEMP 97.3
[2019-09-28] MEDS ORDERED: Lorazepam 2 MG/ML VIAL SLOW IVP PRN (08:43)
[2019-09-28] MEDS: Polyethylene Glycol 3350 17 GM Packet PO SCH (09:00)
[2019-09-28] MEDS: Megestrol Acetate 800 MG/20 ML UDCUP PO SCH (09:00)
[2019-09-28] MEDS: Morphine 2 MG/ML SYRINGE SLOW IVP PRN ×2 (09:04→16:27)
[2019-09-28] MEDS: BIOTENE MOUTH SPRAY 44.3 ML MM SCH (09:09)
[2019-09-28] MEDS: Famotidine/PF 20 mg/2ml Vial SLOW IVP SCH (09:10)
--- NOTE | 2019-09-28 13:08 | PDOC.HOSPP ---
- Subjective Subjective: Seen and examined. Sitting up in the bed. Trying the breakfast with family at bedside. He is more agitated today. Pain not controlled. I have had several long discussions with family members. Patient's power of city attorney Beronica Lang has signed DNR paperwork and now in the paper chart. We are pursuing hospice inpatient in the [place] area. Time was given for questions. All answered in detail. - Objective Vital Signs & Weight: Vital Signs (12 hours) Temp Pulse Resp BP Pulse Ox 09/28/19 08:00 97 09/28/19 07:58 97.3 F L 108 H 16 121/67 97 09/28/19 07:49 120 H 22 H Weight Admit Weight 194 lb Weight 194 lb I&O: 09/27/19 09/28/19 09/29/19 06:59 06:59 06:59 Intake Total 1100 1130 Output Total 725 850 Balance 375 280 Result Diagrams: 09/24/19 04:05 09/24/19 04:05 Hospitalist ROS - Review of Systems All other systems reviewed; all pertinent +/- noted in HPI/Subj - Medication Medications: Active Medications Generic Name Dose Route Start Last Admin Trade Name Freq PRN Reason Stop Dose Admin Acetaminophen 650 mg 09/20/19 20:17 09/26/19 04:39 Tylenol PO 650 mg Q4H PRN Administration Headache/Fever/Mild Pain (1-3) Hydrocodone Bitart/Acetaminophen 1 tab 09/27/19 17:15 09/28/19 01:[address] 5/325 PO 1 tab Q4H PRN Administration Moderate Pain (4-6) Albuterol/Ipratropium 3 ml 09/26/19 19:00 09/28/19 07:49 Duoneb NEB 3 ml [id number] SARAH Administration Bisacodyl 10 mg 09/23/19 20:32 09/27/19 20:41 Dulcolax PO 10 mg DAILYPRN PRN Administration Constipation Famotidine 20 mg 09/20/19 21:00 09/28/19 09:10 Pepcid SLOW IVP 20 mg Q12HR SARAH Administration Fentanyl 25 mcg 09/28/19 09:00 09/28/19 11:02 Duragesic TD 25 mcg Q3D SARAH Administration Megestrol Acetate 800 mg 09/23/19 09:00 09/28/19 09:00 Megace PO Not Given DAILY SARAH Melatonin 3 mg 09/23/19 20:33 09/24/19 19:41 Melatonin PO 3 mg HS PRN Administration Insomnia Miscellaneous Medication 0 ml 09/23/19 15:00 09/28/19 09:09 Biotene Moisturizing Mouth MM 1 spray TID SARAH Administration Morphine Sulfate 2 mg 09/27/19 17:16 09/28/19 09:04 Morphine SLOW IVP 2 mg Q4H PRN Administration Moderate to Severe Pain (6-10) Ondansetron HCl 4 mg 09/20/19 20:17 09/26/19 06:38 Zofran IVP 4 mg Q6H PRN Administration Nausea/Vomiting Polyethylene Glycol 17 gm 09/24/19 09:00 09/28/19 09:00 Miralax PO Not Given DAILY SARAH Senna/Docusate Sodium 2 tab 09/20/19 20:17 09/26/19 20:26 Senokot S PO 2 tab BID PRN Administration Constipation Sodium Chloride 10 ml 09/21/19 09:00 09/28/19 09:06 Flush - Normal Saline IVF 10 ml Q12HR SARAH Administration Sodium Chloride 10 ml 09/21/19 08:09 09/28/19 01:52 Flush - Normal Saline IVF 10 ml PRN PRN Administration Saline Flush - Exam General Appearance: NAD, awake alert Eye: anicteric sclera ENT: normocephalic atraumatic, moist mucosa Neck: supple, symmetric, no lymphadenopathy Heart: no murmur, no gallops, no rubs Respiratory: no rales, normal chest expansion, no tachypnea, rhonchi, wheezes Gastrointestinal: soft, non-tender, no guarding, no rigidity Extremities: no edema Skin: no lesions, no rashes Neurological: cranial nerve grossly intact, no focal deficits Musculoskeletal: generalized weakness Psychiatric: oriented to person, oriented to place, flat affect Hosp A/P (1) Pancreatic mass Status: Acute (2) Metastatic disease Code(s): C79.9 - SECONDARY MALIGNANT NEOPLASM OF UNSPECIFIED SITE Status: Acute (3) Anemia Code(s): D64.9 - ANEMIA, UNSPECIFIED Status: Acute Qualifiers: Anemia type: other cause (4) Hyponatremia Code(s): E87.1 - HYPO-OSMOLALITY AND HYPONATREMIA Status: Acute (5) Leukocytosis Code(s): D72.829 - ELEVATED WHITE BLOOD CELL COUNT, UNSPECIFIED Status: Acute (6) Delirium Code(s): R41.0 - DISORIENTATION, UNSPECIFIED Status: Acute - Plan Plan: D/c planning to inpatient hospice in [place] DNR paperwork signed by JESÚS Snyder when Alert and oriented x3 - tells me he wouldn't want to be on a ventilator Comfort care only Pathology reviewed Adjust pain regimen daily as needed until pain is controlled Fentanyl patch IV morphine Oral norco Ativan for anxiety/ agitation oncology consultation, recommendations appreciated palliative care consultation, recommendations appreciated prognosis: short and long-term prognosis are guarded despite maximal medical therapy. Patient and family have elected for DNR and hospice placement.
--- NOTE | 2019-09-29 02:25 | PQF ---
[employer] Agent Crystal Reports Winform Viewer SREEKANTH OCONNELLWALDO VALENCIA YARI CAGLE [id number] CLINICAL DOCUMENTATION CLARIFICATION FORM: POST DISCHARGE Addendum to original discharge summary date: ____ Late entry note date: __ Date: 09/29/19 ATTN: Yari Cagle Please exercise your independent, professional judgment in responding to the clarification form. Clinical indicators are provided on the bottom of this form for your review Can you please further clarify the diagnosis of the patient based on the clinical indicators below? Please check appropriate box(s): [ XX ] Protein Calorie Malnutrition: [ ] Mild [ XX ] Moderate [ ] Severe [ ] Other Malnutrition (please specify) __ [ ] Underweight without malnutrition [ ] Cachexia [ ] Other diagnosis [ ] Unable to determine In addition, please specify: Present on Admission (POA): [ XX ] Yes [ ] No [ ] Unable to determine CLINICAL INDICATORS - SIGNS / SYMPTOMS / LABS BMI 27.8 Nutritional assessment- poor appetite Nutritional assessment- suggestive of severe malnutrition in the context of chronic illness Consult Dr. Pedraza- weakness, poor appetite and 15 pounds weight loss over the past several months PN 09/23 pg.1- diffuse metastatic disease and possible carcinomatosis RISK FACTORS stage IV pancreatic cancer metastasis to liver, lymphnodes and bone - Consult Dr. Pedraza pg.2 History of prostate prostate cancer- Consult pg.2 Anemia secondary to cancer- Consult pg.3 Diverticulosis- H and P pg.1 TREATMENT: Appetite stimulant- Nutritional assessment Provide ensure Enlive BID- Nutritional assessment IV fluids- [facility] Oncology Consult- Dr. Pedraza Nutritional consult Moderate Malnutrition (in acute illness) Energy Intake: <75% of estimated energy requirement for > 7 days Weight Loss: 1-2%/1 week; 5%/ 1 month; 7.5%/3 months Other: mild body fat loss; mild muscle mass loss; mild fluid accumulation; Severe Malnutrition (in acute illness) Energy Intake: < 50% of estimated energy requirement for > 5 days Weight Loss: >1-2%/1 week; >5%/1 month; >7.5%/3 months Other: moderate body fat loss; moderate muscle mass loss; moderate- severe fluid accumulation; measurably reduced credit card analyst strength Moderate Malnutrition (in chronic illness) Energy Intake: <75% of estimated energy requirement for >1 month Weight Loss: 5%/1 month; 7.5%/3 months; 10%/6 months; 20%/1 year Other: mild body fat loss; mild muscle mass loss; mild fluid accumulation Severe Malnutrition (in chronic illness) Energy Intake: <75% of estimated energy requirement for >1 month Weight Loss: >5%/1 month; >7.5%/3 months; >10%/6 months; >20%/1 year Other: severe body fat loss; severe muscle mass loss; severe fluid accumulation ; measurably reduced credit card analyst strength (This form is maintained as a part of the permanent medical record) 2014 [employer] All Rights Reserved [email or web address]
--- NOTE | 2019-09-29 03:30 | DIS ---
DATE OF ADMISSION: 09/20/2019 DATE OF DISCHARGE: 09/28/2019 REASON FOR HOSPITALIZATION: Severe weakness and back pain. SIGNIFICANT FINDINGS: The patient was found to have stage IV malignancy with pancreatic origin. PROCEDURES PERFORMED AND TREATMENTS RENDERED: Mr. Farah is a 74-year-old gentleman, who presented to [facility] on 09/20/2019 with generalized weakness and back pain. With CT scan of the abdomen, chest, and pelvis, it was concerning for a large lesion in the tail of the pancreas with diffuse metastatic disease-please see full radiographic report for details. The patient was admitted to the oncology unit for close management. The patient was seen and examined by Oncology, General Surgery, Pulmonology/Critical Care, and the Palliative Care team-please see full consultation notes, progress notes, and history and physical for full details. It was determined by specialist that the patient would benefit from a liver biopsy, which was performed on 09/23/2019. Please see full operative report for details. The patient tolerated the procedure well without intraoperative complications. 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 Differential diagnosis may include metastatic adenosquamous carcinoma of the pancreas, metastatic squamous cell carcinoma, and metastatic carcinoma with squamous differentiation, please see full pathology report for full details. Note, there was also some necrotic tissue that was identified. Unfortunately, the patient did not have a good hospital course. His profound weakness did persist throughout his hospitalization secondary to vertebral fracture from metastatic disease. This caused him to have severe pain and pain medications were titrated daily in order to control his pain more adequately. With elevated doses of narcotic medications, the patient did have worsening of his mentation and even agitated and yelling at his family at times. The patient also unfortunately with his hypercoagulable state developed bilateral DVTs in the lower extremity and he was placed on oral anticoagulation. The patient develops new shortness of breath and a repeat imaging of the chest was worrisome for pulmonary infiltrates and pneumonia was considered. The patient was placed on empiric antibiotics. The patient continued to clinically deteriorate. Family meeting was had with his children including the power of tax associate attorney care, Christine Lang, who signed do not attempt resuscitation forms and less aggressive measures were to be pursued. Family elected not to pursue aggressive treatment and they elected to send him to hospice. On one of the several times, I had long conversations with the patient when he was lucid, alert, and oriented x3. I asked him frankly what he would want to do if the worse were to happen and he were to stop breathing, and he tells me that he would not want to end up on life support. He simply does not have the strength or energy to fight this cancer. Due to the fact that the patient with stage IV malignancy on diagnosis with likely pancreatic origin, he has extremely poor prognosis even with aggressive chemotherapy measures. Oncology also recommending less aggressive measures. With efforts from the Palliative Care team, the patient and his family have elected to transfer to hospice. Case management was consulted for hospice placement of the family's choosing. The patient was recommended safe for discharge to hospice by all specialists on 09/28/2019. PROGNOSIS: Poor. CONDITION ON DISCHARGE: Guarded. DISCHARGE MEDICATIONS: Please see full discharge medication list for details. INSTRUCTIONS FOR THE PATIENT/FAMILY: 1. The patient is recommended safe for transfer immediately to inpatient hospice. 2. The patient recommended to have all medications titrated appropriately by hospice physician. 3. Medical records can be obtained through the medical record office at any time for the patient and his family's convenience. Greater than 43 minutes spent coordinating care and discharge process for this patient. Job ID: [id number]
== END 2019-09-28 16:40 | disposition hospice, inpatient (51) | DRG 542 ==
LOC: ERS 14:46 → ONC 18:00
PROVIDERS: ADMIT Emergency Medicine; ATTEND Emergency Medicine
PROC: 0FB13ZX Excision of Right Lobe Liver, Percutaneous Approach, Diagnostic (ICD-10-PCS; principal; 2019-09-23)
DX: M84.58XA Pathological fracture in neoplastic disease, other specified site, initial encounter for fracture (principal); K72.00 Acute and subacute hepatic failure without coma; J18.9 Pneumonia, unspecified organism; C79.51 Secondary malignant neoplasm of bone; C25.9 Malignant neoplasm of pancreas, unspecified; C78.7 Secondary malignant neoplasm of liver and intrahepatic bile duct; R65.10 Systemic inflammatory response syndrome (SIRS) of non-infectious origin without acute organ dysfunction; C77.9 Secondary and unspecified malignant neoplasm of lymph node, unspecified; E87.1 Hypo-osmolality and hyponatremia; J98.11 Atelectasis; I82.413 Acute embolism and thrombosis of femoral vein, bilateral; I82.433 Acute embolism and thrombosis of popliteal vein, bilateral; C78.01 Secondary malignant neoplasm of right lung; C78.02 Secondary malignant neoplasm of left lung; E44.0 Moderate protein-calorie malnutrition; Z51.5 Encounter for palliative care; Z66 Do not resuscitate; N40.0 Benign prostatic hyperplasia without lower urinary tract symptoms; N28.1 Cyst of kidney, acquired; G47.33 Obstructive sleep apnea (adult) (pediatric); D72.829 Elevated white blood cell count, unspecified; D47.3 Essential (hemorrhagic) thrombocythemia; D63.0 Anemia in neoplastic disease; E78.5 Hyperlipidemia, unspecified; K57.90 Diverticulosis of intestine, part unspecified, without perforation or abscess without bleeding; F41.9 Anxiety disorder, unspecified; Z85.46 Personal history of malignant neoplasm of prostate; Z98.52 Vasectomy status; Z79.82 Long term (current) use of aspirin; Z79.899 Other long term (current) drug therapy; Z88.1 Allergy status to other antibiotic agents; R41.0 Disorientation, unspecified; E66.9 Obesity, unspecified; Z68.27 Body mass index [BMI] 27.0-27.9, adult; Z88.0 Allergy status to penicillin; K80.20 Calculus of gallbladder without cholecystitis without obstruction; R09.02 Hypoxemia
CPT/HCPCS: 36415; 36416; 36430; 47000; 71045; 71260; 74177; 76705; 77012; 80048; 80053; 81001; 82105; 82248; 82378; 82728; 82805; 83010; 83540; 83550; 83605; 83615; 83690; 83880; 84484; 85025; 85046; 85060; 85610; 85730; 86301; 86304; 86850; 86900; 86901; 87040; 88307; 88333; 88334; 88341; 88342; 93005; 93970; 94640; 96374; 96375; 99214; G0463; J0692; J1650; J1885; J2060; J2250; J2270; J2405; J3010; J3430; J3490; J7620; P9059; Q9966; Q9967; S0028